=== PATIENT | female | born 1945 | race Caucasian/White ===

== ENCOUNTER 2023-10-06 09:25 | Outpatient (AMB) | payer MEDICARE, SELFPAY ==
--- NOTE | 2023-10-06 09:29 | MHC.PC.OV ---
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 Is last menstrual period known: No Post menopausal: No Patient : No Allergies No Known Allergies Allergy (Verified 10/06/23 09:33) Tobacco use date assessed: 10/06/23 Fall risk assessment: 2 + Falls in past year Last assessed Fall Risk: 10/06/23 Dental Screening Dental Screen Date: 10/06/23 Did you have a dental visit in the last 12 months?: Yes Did you have a dental problem in the last 6 months where you did not have access to dental care?: No Was dental information given to patient?: Patient has dentist HPI HPI Comments History of Present Illness Details This is a 78-year-old female with a past medical history of anxiety, hypertension, vitamin-D deficiency, hypothyroidism, obesity and lung nodules presenting for follow up. She transferred from my panel at [facility] primary care. She was a new patient to me there who transferred from Dr. Burden. Hypertension taking amlodipine 5 mg and lisinopril 10 mg daily. Her blood pressure is elevated today. No chest pain, shortness of breath, headache or dizziness. Anxiety and depression-prescribed fluoxetine 40 mg and Wellbutrin SR 150 mg twice daily. Symptoms are well-controlled on these medications. Hypothyroidism-taking levothyroxine 100 mcg once daily. TSH normal 01/2023. Vitamin-D deficiency-she completed a 12 week course of high dose vitamin-D and is on a daily supplement now. She received a bill for her last vitamin-D test. She is going to contact them to look into this. She had elevated LFTs. She had a liver ultrasound done at [facility] which showed mildly nodular contour. Patient reported having a liver biopsy with Dr. Alvarez in the past. 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 She has colonoscopies with Dr. Alvarez. Her liver ultrasound also showed cholelithiasis. She underwent cholecystectomy in July this year. No complications. Her last colonoscopy was 10/11/2021. No polyps. Prior colonoscopy did have a tubular adenoma. Repeat colonoscopy was recommended in 5 years. Osteoporosis-patient started Fosamax May 2023. She is on calcium and vitamin-D supplementation. She had a mammogram done in 2023 which was normal per patient. Multiple lung nodules-No prior chest CTs included in medical records that were transferred. Patient does not recall if she was supposed to have follow up imaging. No cough, hemoptysis or unexplained weight loss. She is a nonsmoker. Fall risk assessment positive today. Patient said she fell several weeks ago when she was working in her garden. She squatted down and lost her balance and fell forward. No serious injury. She says this has happened a couple of times within the past year. She reports having knee replacement surgery in the past. She feels like over time she has lost some of her strength. No dizziness or syncopal episodes. ROS: Constitutional: No unexplained weight loss, fever, chills, fatigue or night sweats. Eyes: No vision changes Respiratory: No shortness of breath, cough or sputum production. Cardiovascular: No chest pain Gastrointestinal: No anorexia, nausea, vomiting or diarrhea. No abdominal pain or blood in stool. Neurologic: No headache, dizziness, syncope Psychiatric:No SI/HI. Physical exam: Constitutional: Alert, in no distress. Neck: Supple, Full range of motion. No lymphadenopathy. Respiratory: Clear to auscultation. Cardiovascular: S1 S2 regular. No murmurs. Gastrointestinal: Abdomen soft, non-tender, non-distended. Normal bowel sounds. No palpable masses. Extremities: Warm and well perfused. No clubbing, cyanosis or edema. Psychiatric: Normal mood and affect [facility] Medical History (Updated 10/06/23 @ 11:13 by DOMINGO Benitez) Risk for falls Vitamin D deficiency Tubular adenoma of colon Spinal stenosis Major depression, chronic Osteoporosis Obesity with serious comorbidity Multiple lung nodules on CT Hypothyroidism Hypertension Hepatic steatosis Fatigue DJD (degenerative joint disease), multiple sites Chronic constipation Cholelithiases Anxiety Surgical History (Updated 10/06/23 @ 11:08 by DOMINGO Benitez) History of cholecystectomy History of knee replacement History of shoulder surgery Social History Housing: House Patient Tobacco Use Status: Never used Tobacco e-Cigarette/Vaping Use: Never Used Second Hand Smoke Exposure: Yes service: No Current occupational status: retired Current occupational exposures/hazards: No Cognitive needs: No Hearing needs: No Vision needs: Yes Questionnaire PHQ-9 Over the last 2 weeks, how often have you been bothered by any of the following problems? 1. Little interest or pleasure in doing things: not at all 2. Feeling down, depressed, or hopeless: not at all 3. Trouble falling or staying asleep, or sleeping too much: not at all 4. Feeling tired or having little energy: nearly every day 5. Poor appetite or overeating: nearly every day 6. Feeling bad about yourself - or that you are a failure or have let yourself or your family down: not at all 7. Trouble concentrating on things, such as reading the newspaper or watching television: not at all 8. Moving or speaking so slowly that other people could have noticed. Or the opposite - being so fidgety or restless that you have been moving around a lot more than usual: not at all 9. Thoughts that you would be better off or of hurting yourself in some way: not at all Total score: 6 Depression Screening Interpretation: Positive Depression Screening Follow-up: Existing condition and In treatment Depression Screening Done: Yes 24192 - PHQ-9 Billing: Yes Source: Developed by Drs. Jonnie Flores, Aide Paz, Saurabh Eagle and colleagues, with an educational juan ramon from [employer]. Thrive Questionnaire Date Thrive assessed: 10/06/23 I am a: Patient What is your living situation today?: I have a steady place to live Within the past 12 months, did the food you bought not last and you didn't have the money to get more?: Never true Within the past 12 months, did you worry whether your food would run out before you got money to buy more?: Never true Do you have trouble paying for medicines?: No Do you have trouble getting transportation to medical appointments?: No Do you have trouble paying your heating and electricity bill?: No Do you have trouble taking care of your child, family member or friend?: No Do you have trouble with day-to-day activities such as bathing, preparing meals, shopping, managing finances, etc.?: No Are you currently unemployed and looking for a job?: No Are you interested in more education?: No Please select the resources that you would like help with: None Currently or been in a relationship where the following occur: No concerns reported THRIVE Score: 0 AUDIT C Alcohol Use Questionnaire (AUDIT-C) 1. How often do you have a drink containing alcohol?: Never Total Score: 0 Score Reviewed/Action Taken: Yes CARMELA-7 AMB Questionnaire CARMELA-7 Date CARMELA - 7 assessed: 10/06/23 Feeling nervous, anxious, or on edge: 0 = Not at all Not being able to stop or control worryin = Not at all Worrying too much about different things: 0 = Not at all Trouble relaxin = Not at all Being so restless that it is hard to sit still: 0 = Not at all Becoming easily annoyed or irritable: 1 = Several days Feeling afraid as if something awful might happen: 0 = Not at all Total CARMELA-7 score (0-4 normal; 5-9 mild; 10-14 moderate; 15-21 severe): 1 Source: Developed by Drs. Jonnie Flores, Aide Paz, Saurabh Eagle and colleagues, with an educational juan ramon from [employer]. CARMELA-7 Assessment Billing CARMELA-7 Assessment Tool: CARMELA-7 Assessment 66912 Physical exam (Primary Care) Vital Signs: Last Vital Signs Temp 97.7 F 10/06/23 09:37 Pulse 60 10/06/23 09:37 Resp 16 10/06/23 09:37 BP 158/74 H 10/06/23 09:37 Pulse Ox 96 10/06/23 09:37 Oxygen Delivery Method Room Air 10/06/23 09:37 BMI result Body Mass Index 30.4 Tobacco/Smoking Status: Tobacco use Status Tobacco use date assessed 10/06/23 10/06/23 09:35 Patient Tobacco Use Status Never used Tobacco 10/06/23 09:35 e-Cigarette/Vaping Use Never Used 10/06/23 09:35 Depression Screening Interpretation: Positive Depression Screening Follow-up: Existing condition and In treatment Currently or been in a relationship where the following occur: No concerns reported Assessment and Plan Assessment & Plan (1) Hypertension: Code(s): I10 - Essential (primary) hypertension Qualifiers: Hypertension type: primary hypertension Qualified Code(s): I10 - Essential (primary) hypertension Plan: Increase lisinopril to 20 mg daily. Check labs in 1 month. Continue amlodipine 5 mg. Continue efforts at weight loss, avoidance of caffeine and low-sodium diet. (2) Hypothyroidism: Code(s): E03.9 - Hypothyroidism, unspecified Qualifiers: Hypothyroidism type: acquired Qualified Code(s): E03.9 - Hypothyroidism, unspecified Plan: Continue levothyroxine. (3) Multiple lung nodules on CT: Code(s): R91.8 - Other nonspecific abnormal finding of lung field Plan: See HPI. Requested last CT scan report from [facility]. (4) Major depression, chronic: Code(s): F32.9 - Major depressive disorder, single episode, unspecified Plan: Controlled. Continue fluoxetine and bupropion. (5) Osteoporosis: Code(s): M81.0 - Age-related osteoporosis without current pathological fracture Qualifiers: Osteoporosis type: age-related Presence of current pathological fracture: without current pathological fracture Qualified Code(s): M81.0 - Age-related osteoporosis without current pathological fracture Plan: Continue calcium and vitamin-D supplementation and Fosamax. Due for bone density exam in 05/03/2025. (6) Anxiety: Code(s): F41.9 - Anxiety disorder, unspecified Plan: Controlled. Continue fluoxetine. (7) Risk for falls: Code(s): Z91.81 - History of falling Plan: Mechanical falls with no serious injuries within the past year reported by the patient. Recommended physical therapy for gait coordination and strengthening. Reviewed assistive devices. She will think about this. Plan Follow up in 6 months for Medicare wellness visit. Medications: New alendronate 70 mg PO QWEEK 90 days 13 tabs 3RF Coding Level of Care Code Est Pt Level 4 (01316) Complex EM visit Add On G2211 Diagnoses Primary hypertension I10 Hypertension type: primary hypertension Acquired hypothyroidism E03.9 Hypothyroidism type: acquired Multiple lung nodules on CT R91.8 Major depression, chronic F32.9 Age-related osteoporosis without current pathological fracture M81.0 Osteoporosis type: age-related Presence of current pathological fracture: without current pathological fracture Anxiety F41.9 Risk for falls Z91.81 Additional Codes CARMELA-7 Assessment Billing - CARMELA-7 Assessment Tool: CARMELA-7 Assessment [id number] ([id number])
[2023-10-06 09:37] VITALS: BP 158/74; PULSE 60; RESP 16; TEMP 36.5; O2SAT 96; BMI 30.4
== END 2023-10-06 10:18 | disposition home or self-care (01) ==
PROVIDERS: PCP Physician Assistant Medical; Visit Provider Physician Assistant Medical
DX: I10 Essential (primary) hypertension (principal); E03.9 Hypothyroidism, unspecified; R91.8 Other nonspecific abnormal finding of lung field; F32.9 Major depressive disorder, single episode, unspecified; M81.0 Age-related osteoporosis without current pathological fracture; F41.9 Anxiety disorder, unspecified; Z91.81 History of falling
CPT/HCPCS: 99214; G2211

== ENCOUNTER 2024-03-26 08:40 | Outpatient (AMB) | payer MEDICARE, SELFPAY ==
--- NOTE | 2024-03-26 08:42 | AM.OFFVISMDC ---
Intake Vital Signs 03/26/24 08:43 Height 5 ft 1 in Weight 166 lb BMI 31.4 BP 138/76 Blood Pressure Location Rt brachial Position Sitting Pulse 68 Pulse Source Pulse Oximeter Pulse Oximetry (%) 95 Oxygen Delivery Method Room Air Intake Visit Reasons: annual wellness visit Allergies No Known Allergies Allergy (Verified 03/26/24 08:46) HPI HPI Comments History of Present Illness Details This is a 78-year-old female with a past medical history of anxiety, hypertension, vitamin-D deficiency, hypothyroidism, obesity and lung nodules presenting for wellness exam. Hypertension-taking amlodipine 5 mg and lisinopril 20 mg daily. Patient reports systolic home blood pressure readings are 130 or less. It is mildly elevated today. No chest pain, shortness of breath, headache or dizziness. Anxiety and depression-prescribed fluoxetine 40 mg and Wellbutrin SR 150 mg twice daily. She has had a lot more stress recently. She requests Xanax which she used to take as needed. She had no side effects on it. Her brother has dementia. It is getting to the point where he can not be alone, and he is asking to move in with the patient and her . 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 He also has depression and anxiety. [facility]. She is having difficulty with increased anxiety and irritability. Hypothyroidism-taking levothyroxine 100 mcg once daily. TSH normal 01/2023. She has lab orders to do at [facility] [place]. Vitamin-D deficiency-she completed a 12 week course of high dose vitamin-D and is on a daily supplement now. There was an issue with billing with her vitamin-D test at [facility] that took a long time to resolve so she does not want the vitamin-D level checked with her blood work though I have recommended it. She had elevated LFTs. She had a liver ultrasound done at [facility] which showed mildly nodular contour. Patient reported having a liver biopsy with Dr. Alvarez in the past. 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 She has colonoscopies with Dr. Alvarez. Her liver ultrasound also showed cholelithiasis. She underwent cholecystectomy in July 2023 this year. Her last colonoscopy was 10/11/2021. No polyps. Prior colonoscopy did have a tubular adenoma. Repeat colonoscopy was recommended in 5 years. Osteoporosis-patient started Fosamax May 2023. She is on calcium and vitamin-D supplementation. Multiple lung nodules-Per chest CT 03/22/2022 from [facility] bilateral pulmonary nodules not significantly changed. Per guidelines no further follow up needed. No cough, hemoptysis or unexplained weight loss. She is a nonsmoker. She goes to [facility] for chronic neck pain. She had 3 injections on each side 3 weeks ago. She has a follow up in April. She takes Tylenol which does not really help. She just got the notice to do her mammogram. She will call to schedule it. Fall risk assessment positive today because she fell last summer while working in her garden. She was not seriously injured. She reports having knee replacement surgery in the past. No dizziness or syncopal episodes. Patient said she is up-to-date with pneumonia vaccine, influenza vaccine and RSV vaccine done at her pharmacy. She will check with the pharmacy about tetanus immunization, and she is also going to schedule the shingles vaccine. She has albuterol as needed for wheezing and cough that occurs occasionally with cold symptoms. She needs a refill on the inhaler. Refill sent to pharmacy. ROS: Constitutional: No unexplained weight loss, fever, chills, fatigue or night sweats. Eyes: No vision changes, blurry vision, double vision, eye pain, eye redness, eye discharge. ENT: No hearing loss, sneezing, congestion, runny nose or sore throat. Respiratory: No shortness of breath, cough or sputum production. Cardiovascular: No chest pain, chest pressure or chest discomfort. No palpitations or pedal edema. Gastrointestinal: No anorexia, nausea, vomiting or diarrhea. No abdominal pain or blood in stool. Genitourinary: No dysuria, hematuria, urinary frequency. Neurologic: No headache, dizziness, syncope, unilateral weakness, ataxia, numbness or tingling in the extremities. Musculoskeletal: see HPI Hematologic/Lymphatics: No bleeding or bruising. No painful lymph nodes. Skin: No rash or itching. No new or changing skin lesions. Endocrine: No cold or heat intolerance. No polyuria or polydipsia. Psychiatric: No SI or HI. Physical exam: Constitutional: Alert, in no distress. Head: Normocephalic. Eyes: Pupils are equal, round and reactive to light. Extraocular muscles intact. Ear, Nose and Throat: Canals clear. TMs normal. Normal nasal mucosa. No nasal discharge. No oral lesions. Neck: Supple, Full range of motion. No lymphadenopathy. No palpable thyroid masses. Respiratory: Clear to auscultation. Cardiovascular: S1 S2 regular. No murmurs. No carotid bruits. Gastrointestinal: Abdomen soft, non-tender, non-distended. Normal bowel sounds. No palpable masses. Neurologic: No focal neurological deficits. Symmetric patellar reflexes. Moves all extremities spontaneously. Sensation intact bilaterally. Skin: No rashes or lesions. Musculoskeletal: No gross deformities. Normal range of motion. Extremities: Warm and well perfused. No clubbing, cyanosis or edema. Intact peripheral pulses. Psychiatric: Normal mood and affect [facility] Medical History Risk for falls Vitamin D deficiency Tubular adenoma of colon Spinal stenosis Major depression, chronic Osteoporosis Obesity with serious comorbidity Multiple lung nodules on CT Hypothyroidism Hypertension Hepatic steatosis Fatigue DJD (degenerative joint disease), multiple sites Chronic constipation Cholelithiases Anxiety Surgical History History of cholecystectomy History of knee replacement History of shoulder surgery Social History Housing: House Patient Tobacco Use Status: Never used Tobacco e-Cigarette/Vaping Use: Never Used Second Hand Smoke Exposure: Yes service: No Current occupational status: retired Current occupational exposures/hazards: No Cognitive needs: No Hearing needs: No Vision needs: Yes Questionnaire Medicare Wellness Checkup What [age] What gender do you identify with?: female During the past 4 weeks, how much have you been bothered by emotional problems such as feeling anxious, depressed, irritable, sad or downhearted, and blue?: see PHQ-9 During the past 4 weeks, has your physical & emotional health limited your social activities with family, friends, neighbors, or groups?: quite a bit During the past 4 weeks, how much bodily pain have you generally had?: very mild pain During the past 4 weeks, was someone available to help you if you needed & wanted help?: yes, as much as I wanted During the past 4 weeks, what was the hardest physical activity you could do for at least 2 minutes?: moderate Can you get to places out of walking distance without help? (For eg., can you travel alone on buses, taxis or drive your car?): Yes Can you go shopping for groceries or clothes without someone's help?: Yes Can you prepare your own meals?: Yes Can you do your housework without help?: Yes Because of any health problems, do you need the help of another person with your personal care needs such as eating, bathing, dressing or getting around the house?: No Can you handle your own money without help?: Yes During the past 4 weeks, how would you rate your health in general?: good During the past 4 weeks how have things been going for you?: good & bad parts about equal Are you having difficulties driving your car?: no Do you always fasten your seat belt when you are in a car?: yes, usually During past 4 weeks, have you been bothered by the following: never: Sexual problems?, Trouble eating well? and Problems using the telephone?, sometimes: Falling or dizzy when standing up and Teeth or denture problems? and always: Tiredness or fatigue? Have you fallen 2 or more times in the past year?: Yes Are you afraid of falling?: No Are you a smoker?: no During the past 4 weeks, how many drinks of wine, beer, or other alcoholic beverages did you have?: no alcohol at all Do you exercise for about 20 minutes 3 or more times a week?: no, I usually do not exercise this much Have you been given information to help with the following?: no: Hazards in your house that might hurt you? and no: Keeping track of your medications? How often do you have trouble taking medicines the way you have been told to take them?: I always take medicine as prescribed How confident are you that you can control & manage most of your health problems?: very confident What is your race?: White Activity of Daily Living Bathing - sponge bath, tub bath or shower: receives no assistance (gets in/out by self, if usual bathing means Dressing - getting clothes from closets & drawers, including inner/outer garments & fasteners.: gets clothes & gets completely dressed without help Toileting - going to the 'toilet room' for urine/bowel elimination & cleaning self/arranging clothes: goes to toilet room, cleans self, arranges clothes without help Transfer: moves in & out of bed and chair without help (may use support object) Continence: controls urination/bowel movements completely by self Feeding: feeds self without help Total Score: 0 Information obtained from: patient Using telephone: independent Traveling: independent Shopping: independent Preparing meals: independent Housework: independent Taking medicine: independent Managing money: independent PHQ-9 Over the last 2 weeks, how often have you been bothered by any of the following problems? 1. Little interest or pleasure in doing things: not at all 2. Feeling down, depressed, or hopeless: several days 3. Trouble falling or staying asleep, or sleeping too much: not at all 4. Feeling tired or having little energy: nearly every day 5. Poor appetite or overeating: not at all 6. Feeling bad about yourself - or that you are a failure or have let yourself or your family down: not at all 7. Trouble concentrating on things, such as reading the newspaper or watching television: several days 8. Moving or speaking so slowly that other people could have noticed. Or the opposite - being so fidgety or restless that you have been moving around a lot more than usual: not at all 9. Thoughts that you would be better off or of hurting yourself in some way: not at all Total score: 5 Depression Screening Interpretation: Positive Depression Screening Done: Yes 34881 - PHQ-9 Billing: Yes Source: Developed by Drs. Jonnie Flores, Aide Paz, Saurabh Eagle and colleagues, with an educational juan ramon from [employer]. Physical Exam Vital Signs: Last Vital Signs Pulse 68 03/26/24 08:43 BP 138/76 03/26/24 08:43 Pulse Ox 95 03/26/24 08:43 Oxygen Delivery Method Room Air 03/26/24 08:43 BMI result Body Mass Index 31.4 Assessment & Plan Assessment & Plan (1) Encounter for annual wellness visit (AWV) in Medicare patient: Code(s): Z00.00 - Encounter for general adult medical examination without abnormal findings (2) Major depression, chronic: Code(s): F32.9 - Major depressive disorder, single episode, unspecified Plan: Continue fluoxetine and bupropion. (3) Multiple lung nodules on CT: Comment: Per chest CT 03/22/2022 from [facility] bilateral pulmonary nodules not significantly changed. Per guidelines no further follow up needed. Code(s): R91.8 - Other nonspecific abnormal finding of lung field (4) Hypothyroidism: Code(s): E03.9 - Hypothyroidism, unspecified Qualifiers: Hypothyroidism type: acquired Qualified Code(s): E03.9 - Hypothyroidism, unspecified Plan: Continue levothyroxine. Check TSH. (5) Hypertension: Code(s): I10 - Essential (primary) hypertension Qualifiers: Hypertension type: primary hypertension Qualified Code(s): I10 - Essential (primary) hypertension Plan: Systolic BP mildly elevated in office. Patient reports home readings are normal. She will continue to monitor and call if blood pressure readings are greater than 130. Continue amlodipine and lisinopril. Recommended low-sodium diet and avoidance of caffeine. (6) Hepatic steatosis: Code(s): K76.0 - Fatty (change of) liver, not elsewhere classified Plan: Recommended low-cholesterol diet and avoidance of alcohol. Followed by Gastroenterology. Check LFTs. (7) Anxiety: Code(s): F41.9 - Anxiety disorder, unspecified Plan: Increase stressed recently due to the situation with her brother. Continue fluoxetine and bupropion. Prescribed short term prescription of Xanax to use as needed for anxiety at night. Reviewed this is a controlled substance that is addictive. Advised patient not to drive, operate heavy machinery or combined with alcohol due to the risk of sedation, dizziness and respiratory suppression. The risks of withdrawal were reviewed with the patient including seizure and . If patient needs referral to behavioral health she will contact me. She is well supported at home by her . (8) Vitamin D deficiency: Code(s): E55.9 - Vitamin D deficiency, unspecified Plan: Continue vitamin-D supplementation. Declines vitamin-D level. (9) Osteoporosis: Code(s): M81.0 - Age-related osteoporosis without current pathological fracture Qualifiers: Osteoporosis type: age-related Presence of current pathological fracture: without current pathological fracture Qualified Code(s): M81.0 - Age-related osteoporosis without current pathological fracture Plan: Bone density up-to-date. Continue weight-bearing exercise and avoidance of alcohol and tobacco. Continue Fosamax. Continue calcium and vitamin-D supplementation. Plan Follow up in 6 months. Medications: New albuterol sulfate 90 mcg/actuation 2 inhalations inhalation .every 4 hours 30 days PRN 8.5 grams 1RF shortness of breath or wheezing alprazolam (Xanax) 0.25 - 0.5 mg (1 - 2 x 0.25 mg) PO BEDTIME PRN 14 tabs 0RF anxiety Refilled levothyroxine 100 mcg PO DAILY 90 tabs 3RF Quality Reporting (2019) Depression/Bipolar (159/160/161/177) PHQ-9: Total score: 5 Coding Level of Care Code Medicare Subsequent (G0439) Est Pt Level 2 (06360) Diagnoses Encounter for annual wellness visit (AWV) in Medicare patient Z00.00 Major depression, chronic F32.[address] on [address] R91.8 Acquired hypothyroidism E03.9 Hypothyroidism type: acquired Primary hypertension I10 Hypertension type: primary hypertension Hepatic steatosis K76.0 Anxiety F41.9 Vitamin D deficiency E55.9 Age-related osteoporosis without current pathological fracture M81.0 Osteoporosis type: age-related Presence of current pathological fracture: without current pathological fracture Additional Codes PHQ-9 - 77485 - PHQ-9 Billing: Yes ([id number])
[2024-03-26 08:43] VITALS: BP 138/76; PULSE 68; O2SAT 95; BMI 31.4
--- OUTSIDE RECORDS SUMMARY | 2024-03-26 08:59 | XMS_ITS | Encounter Summary ---
Author Organization [facility] Address [address] [place] [address] Care Team Providers Care Chancery Clerk Name Role Phone Kinga Brandt MD Primary Care Provider + Encounter Details Date Type Department Care Team (Latest Contact Info) Description 05/29/2020 Lab Requisition [facility] COVID [address] Through [address] [place] [address] [address] [place] [address] Frankie Mobley MD [address] [place] [address] Encounter for laboratory testing for COVID-19 virus Social History Tobacco Use Types Packs/Day Years Used Date Smoking Tobacco: Former Cigarettes 974 - 1998 Smokeless Tobacco: Never Alcohol Use Standard Drinks/Week Comments Yes 0 (1 standard drink = 0.6 oz pur e alcohol) 6x year Sex and Gender Information Value Date Recorded Sex Assigned at Not on file Gender Identity Not on file Sexual Orientation Not on file COVID-19 Exposure Response Date Recorded In the last month, have you been in contact with someone who was confirmed or suspected to have Coronavirus / COVID-19? Unable to assess 05/29/2020 10:42 AM EDT documented as of this encounter Plan of Treatment Not on file documented as of this encounter Procedures Procedure Name Priority Date/Time Associated Diagnosis Comments COVID-19 (SARS-COV-2), PHILLIP (IN-HOUSE) Routine 05/29/2020 10:42 AM EDT Encounter for laboratory testing for COVID-19 virus [ICD-10-CM] documented in this encounter Results * COVID-19 (SARS-CoV-2), PHILLIP (In-House) (05/29/2020 10:42 AM EDT) SARS CoV 2 Not Detected Not Detected 05/29/2020 1:48 PM EDT [facility] Comment: Negative results do not preclude SARS-CoV-2 (COVID-19)infection and should not be used as the sole basis for treatment or other patient management decisions. The SARS-CoV-2 (Covid-19) Nucleic Acid Amplification Assay is limited to laboratories certified under the Clinical Laboratory Improvement Amendments of 1988 (CLIA), 42 U.S.C. 263a, to perform high complexity tests. Nucleic acid amplication tests include RT-PCR and TMA. This assay has not been FDA cleared or approved, however, this assay has been authorized by the Food and Drug Administration (FDA) under an Emergency Use Authorization (EUA). ??Validation was completed and performance characteristics established by [facility] as per the FDA and CLIA requirement for this EUA. The Aptima SARS-CoV-2 assay Letter of Authorization, along with the authorized Fact Sheet for Healthcare Providers, the authorized Fact Sheet for Patients, and authorized labeling are available on the FDA website: https://www.fda.gov/medical-devices/qzxicmzxv-pwgwwstngj-vvsicho-devices/emergen -us v-ytyevnpgpiujbc-lyszxwf-devices. [facility] [place] [place] License [id number] ??CLIA [id number] Source Nasopharyngeal 05/29/2020 1:48 PM EDT [facility] Comment:Performed at [facility], [place] license No. [id number] CLIA No. [id number] Microbiology Nasopharyngeal swab / Unknown 05/29/2020 10:42 AM EDT 05/29/2020 10:43 AM EDT Frankie oMbley MD BODY FLUIDS AND NASEEM BULLARD ORDERABLES [facility] [address] [place] [address] documented in this encounter Visit Diagnoses Diagnosis Encounter for laboratory testing for COVID-19 virus documented in this encounter Care Teams Chancery Clerk Relationship Specialty Start Date End Date Kinga Brandt MD [address] [place] [address] PCP - General 04/22/20 documented as of this encounter
--- OUTSIDE RECORDS SUMMARY | 2024-03-26 08:59 | XMS_ITS | Clinical Summary ---
Author Organization [facility] Address [address] [place] [address] Care Team Providers Care Tool Grinder Name Role Phone Abiodun Christianson Primary Care Provider Unavailabl e Family History Medical History Relation Name Comments Cancer (?Type) Mother malignant elizabeth plasm : Mother Heart Disorder Mother FH: heart dis ease : Mother Relation Name Status Comments Mother Social History Tobacco Use Types Packs/Day Years Used Date Smoking Tobacco: Never Assessed Comments Unknown Sex and Gender Information Value Date Recorded Sex Assigned at Not on file Legal Sex Female 9:43 PM EDT Gender Identity Not on file Sexual Orientation Not on file Plan of Treatment Health Maintenance Due Date Last Done Comments Hepatitis C Screening 1945 DTaP/Tdap/Td (1 - Tdap) 06/12/1965 Pneumococcal 50+ years (1 of 1 - PCV) 06/12/1997 Zoster (Shingrix) (1 of 2) 06/12/1997 Bone Density 06/12/2012 RSV (1 - 1-dose 75+ series) 06/12/2022 COVID-19 Vaccine ( - 2023-2 5 season) 2023 Influenza (#1) 2023 HPV Vaccine Aged Out No longer eligi ble based on patient's age to complete this topic Hep A Aged Out No longer eligi ble based on patient's age to complete this topic Hep B Aged Out No longer eligi ble based on patient's age to complete this topic Hib Aged Out No longer eligi ble based on patient's age to complete this topic Mammogram/Breast Imaging Discontinued Meningococcal ACWY Aged Out No longer eligible based on patient's age to complete this topic Pap Smear Discontinued Zoster (Zostavax) Discontinued Care Teams Tool Grinder Relationship Specialty Start Date End Date Abiodun Christianson PCP - General 09/20/22
--- OUTSIDE RECORDS SUMMARY | 2024-03-26 08:59 | XMS_ITS | Clinical Summary ---
Author Organization [facility] Address [address] [place] [id number] Care Team Providers Care Plant Engineering Supervisor Name Role Phone Kinga Brandt MD Primary Care Provider + Allergies Active Allergy Reactions Criticality Noted Date Comments Sulfamethoxazole-Trimethop rim Unknown/Patient and Family Unable to Define Medium 06/05/2020 Oxycodone-Acetaminophen GI Intolerance/Nausea/Vomiting Low 06/05/2020 Hydrocodone-Acetaminophen GI Intolerance/Nausea/Vomiting Low 06/05/2020 Medications Medication Sig Dispensed Refills Start Date End Date Status levothyroxine (Synthroid) 112 MCG tablet Take 112 mcg by mouth daily on an empty stomach. Active buPROPion (WELLBUTRIN SR) 150 MG 12 hr tablet Take 150 mg by mouth 2 (two) times a day in the morning and the early evening.. Active FLUoxetine (PROzac) 40 MG capsule Take 40 mg by mouth daily. Active carisoprodol (SOMA) 350 MG tablet Take 350 mg by mouth 2 (two) times a day as needed for muscle spasms. Active traMADol (ULTRAM) 50 MG tabletIndications:Pa in, dental Take 1 tablet (50 mg total) by mouth 3 times daily (every 8 hours) as needed for moderate pain or severe pain. 9 tablet 06/05/2020 Active amoxicillin (AMOXIL) 500 MG capsuleIndications:P ain, dental Take 1 capsule (500 mg total) by mouth 3 (three) times a day. 15 capsule 06/05/2020 Active ibuprofen (MOTRIN) 600 MG tabletIndications:Pa in, dental Take 1 tablet (600 mg total) by mouth 4 times daily (every 6 hours) as needed for mild pain. 30 tablet 06/05/2020 Active Social History Tobacco Use Types Packs/Day Years Used Date Smoking Tobacco: Former Cigarettes 1 25 1 974 - 1998 Smokeless Tobacco: Never Alcohol Use Standard Drinks/Week Comments Yes 0 (1 standard drink = 0.6 oz pur e alcohol) 6x year Sex and Gender Information Value Date Recorded Sex Assigned at Not on file Gender Identity Not on file Sexual Orientation Not on file Last Filed Vital Signs Vital Sign Reading Time Taken Comments Blood Pressure 150/67 06/05/2020 10:30 AM EDT Pulse 56 06/05/2020 10:30 AM EDT Temperature 36.5 ??C (97.7 ??F) 06/05/2020 9:34 AM ED T Respiratory Rate 16 06/05/2020 10:15 AM EDT Oxygen Saturation 94% 06/05/2020 10:30 AM EDT Inhaled Oxygen Concentration - - Weight 72.6 kg (160 lb) 05/15/2020 10:13 AM EDT Height 154.9 cm (5' 1 ) 05/15/2020 10:13 AM EDT Body Mass Index 30.23 05/15/2020 10:13 AM EDT Plan of Treatment Health Maintenance Due Date Last Done Comments Hepatitis C Virus Screening 1945 DTaP/Tdap/Td Vaccines (1 - Tdap) 06/12/1966 Pneumococcal Vaccines 50+ (1 of 1 - PCV) 06/12/1997 Zoster (Shingles) Vaccine (1 of 2) 06/12/1997 DXA Bone Density (Females,Ag es 65 and older) 06/12/2012 RSV Vaccine 60 years and old er and Patients (1 - 1-dose 75+ series) 06/12/2022 Influenza Vaccine 09/15/2023 COVID-19 Vaccine ( - 2023-2 5 season) 2023 Hepatitis B Vaccines Aged Out No long er eligible based on patient's age to complete this topic Advance Directives * Full Code (Latest Code Status on File) Date Activated Date Inactivated Comments 06/05/2020 7:22 AM Question Answer Comments Decision Thoroughly Discussed with: Patient Care Teams Plant Engineering Supervisor Relationship Specialty Start Date End Date Kinga Brandt MD [address] [place] [address] PCP - General 04/22/20
== END 2024-03-26 09:24 | disposition home or self-care (01) ==
PROVIDERS: PCP Physician Assistant Medical; Visit Provider Physician Assistant Medical
DX: Z00.00 Encounter for general adult medical examination without abnormal findings (principal); F32.9 Major depressive disorder, single episode, unspecified; R91.8 Other nonspecific abnormal finding of lung field; E03.9 Hypothyroidism, unspecified; I10 Essential (primary) hypertension; K76.0 Fatty (change of) liver, not elsewhere classified; F41.9 Anxiety disorder, unspecified; E55.9 Vitamin D deficiency, unspecified; M81.0 Age-related osteoporosis without current pathological fracture

== ENCOUNTER → 2024-03-26 08:40 | Outpatient (BNVA) | payer MEDICARE, SELFPAY | PROVIDERS: PCP Physician Assistant Medical; Visit Provider Physician Assistant Medical | DX: Z00.00 Encounter for general adult medical examination without abnormal findings (principal); F32.9 Major depressive disorder, single episode, unspecified; R91.8 Other nonspecific abnormal finding of lung field; E03.9 Hypothyroidism, unspecified; I10 Essential (primary) hypertension; K76.0 Fatty (change of) liver, not elsewhere classified; F41.9 Anxiety disorder, unspecified; E55.9 Vitamin D deficiency, unspecified; M81.0 Age-related osteoporosis without current pathological fracture; Z79.899 Other long term (current) drug therapy | CPT/HCPCS: 96127; 99212 ==

== ENCOUNTER 2024-03-28 08:35 | Outpatient (REF) | payer MEDICARE, SELFPAY ==
[2024-03-28 11:34] LABS: Hematocrit 42.9 % (37.0-47.0); Mean Corpuscular HGB Conc 32.6 g/dl (31.0-35.0); Mean Corpuscular Hemoglobin 30.8 pg (27.0-33.0); Mean Corpuscular Volume 94.3 fL (80.0-98.0); Mean Platelet Volume 10.1 fL (9.4-12.3); Platelet Count 163 X10*3/uL (160-400); Red Blood Count 4.55 X10*6/uL (4.20-5.50); Red Cell Distribution Width 13.2 % (11.0-16.0); White Blood Count 6.2 X10*3/uL (4.8-10.8)
[2024-03-28 11:59] LABS: Alanine Aminotransferase 52 U/L (0-31); Albumin Level 4.1 g/dL (3.5-5.0); Alkaline Phosphatase 54 U/L (39-117); Anion Gap 12 (12-20); Aspartate Amino Transferase 46 U/L (5-31); Bilirubin Total 0.8 mg/dL (0.0-1.0); Blood Urea Nitrogen 23 mg/dL (9-16); Calcium 9.2 mg/dL (8.4-10.2); Carbon Dioxide 24 mmol/L (22-29); Chloride 107 mmol/L (96-108); Cholesterol 181 mg/dL (<200); Estimated Glomerular Filt Rate 45; Glucose Random 138 mg/dL (60-115); HDL Cholesterol 45 mg/dL (>40); LDL Cholesterol Calculated 118 mg/dL (<100); Potassium 4.5 mmol/L (3.3-5.1); Sodium 138 mmol/L (135-145); Total Protein 7.6 g/dL (6.5-8.0); Triglycerides 91 mg/dL (<150)
[2024-03-28 12:21] LABS: TSH reflex Free T4 1.87 uIU/mL (0.32-4.0)
== END 2024-03-28 08:36 | disposition home or self-care (01) ==
LOC: HO.WFDLDS 08:35
PROVIDERS: Visit Provider Physician Assistant Medical
DX: K76.0 Fatty (change of) liver, not elsewhere classified (principal); I10 Essential (primary) hypertension; E03.9 Hypothyroidism, unspecified; M81.0 Age-related osteoporosis without current pathological fracture; E55.9 Vitamin D deficiency, unspecified; Z91.81 History of falling; E66.9 Obesity, unspecified
CPT/HCPCS: 36415; 80053; 80061; 84443; 85027

== ENCOUNTER 2024-04-26 14:20 | Outpatient (AMB) | payer MEDICARE, SELFPAY ==
--- NOTE | 2024-04-26 14:17 | MHC.PC.OV ---
Intake Visit Reasons: review test results. Building Pressure Washer Required: No Allergies No Known Allergies Allergy (Verified 04/26/24 14:17) Tobacco use date assessed: 10/06/23 Dental Screening Dental Screen Date: 10/06/23 HPI HPI Comments History of Present Illness Details This is a 78-year-old female with a past medical history of anxiety, hypertension, vitamin-D deficiency, hypothyroidism, obesity and lung nodules presenting to discuss her lab results. Her fasting glucose is elevated at 138. Denies history of prediabetes/diabetes. She endorses urinary frequency. No polydipsia. Her GFR is decreased at 47. Creatinine is 1.17. Denies history of kidney issues. She is not using NSAIDs. She drinks a lot of water during the day. Her LDL cholesterol is elevated at 118. She is not on a cholesterol medication. Nonsmoker. She had elevated LFTs. She had a liver ultrasound done at [facility] which showed mildly nodular contour. Patient reported having a liver biopsy with Dr. Alvarez in the past. She was diagnosed with RON. She has colonoscopies with Dr. Alvarez. Her liver ultrasound also showed cholelithiasis. She underwent cholecystectomy in July 2023. Denies abdominal pain, nausea, vomiting, jaundice. ROS: Constitutional: No unexplained weight loss, fever, chills, fatigue or night sweats. Gastrointestinal: No anorexia, nausea, vomiting or diarrhea. No abdominal pain Genitourinary: No dysuria, hematuria, urinary PFSH Medical History (Updated 04/26/24 @ 14:29 by DOMINGO Benitez) Decreased renal function Hyperlipidemia Elevated fasting blood sugar Risk for falls Vitamin D deficiency Tubular adenoma of colon Spinal stenosis Major depression, chronic Osteoporosis Obesity with serious comorbidity Multiple lung nodules on CT Hypothyroidism Hypertension Hepatic steatosis Fatigue DJD (degenerative joint disease), multiple sites Chronic constipation Cholelithiases Anxiety Surgical History History of cholecystectomy History of knee replacement History of shoulder surgery Social History Housing: House Patient Tobacco Use Status: Never used Tobacco e-Cigarette/Vaping Use: Never Used Second Hand Smoke Exposure: Yes service: No Current occupational status: retired Current occupational exposures/hazards: No Cognitive needs: No Hearing needs: No Vision needs: Yes Questionnaire Thrive Questionnaire Date Thrive assessed: 10/06/23 CARMELA-7 AMB Questionnaire CARMELA-7 Date CARMELA - 7 assessed: 10/06/23 Source: Developed by Drs. Jonnie Flores, Aide Paz, Saurabh Eagle and colleagues, with an educational juan ramon from [employer]. Physical exam (Primary Care) Tobacco/Smoking Status: Tobacco use Status Tobacco use date assessed 10/06/23 04/26/24 14:18 Patient Tobacco Use Status Never used Tobacco 04/26/24 14:18 e-Cigarette/Vaping Use Never Used 04/26/24 14:18 Thrive Assessment: Date of Thrive Assessment Date Thrive assessed 10/06/23 04/26/24 14:18 Telehealth Telehealth Telehealth Platform: Telephone Location of provider rendering services: practice address Location of patient: address on file Patient Identification confirmed using: Name, : Yes Telehealth method: voice only Patient verbally consented to treatment: Yes Patient verbally consented to billing insurance company: Yes Patient informed of any privacy concerns related to visit: Yes Minutes spent on Phone/Video with Pt.: 8 Coding Level of Care Code Tele Est Pt Level 3 (60918) Complex EM visit Add On G2211 Diagnoses Decreased renal function N28.9 Hyperlipidemia E78.5 Elevated fasting blood sugar R73.01 Hepatic steatosis K76.0 Assessment & Plan Assessment & Plan (1) Decreased renal function: Code(s): N28.9 - Disorder of kidney and ureter, unspecified Category: Medical Plan: Check urine for microalbumin and repeat creatinine and GFR. (2) Hyperlipidemia: Code(s): E78.5 - Hyperlipidemia, unspecified Category: Medical Plan: ASCVD risk score is elevated. We will check hemoglobin A1c and we discussed that she may need to start a statin. We will talk about this once I have the rest of her lab results. (3) Elevated fasting blood sugar: Code(s): R73.01 - Impaired fasting glucose Category: Medical Plan: Check hemoglobin A1c. (4) Hepatic steatosis: Code(s): K76.0 - Fatty (change of) liver, not elsewhere classified Category: Medical Plan: Followed by Gastroenterology. Avoid alcohol. Follow diet low in cholesterol. Plan Follow up to be determined once labs are resulted. Orders: Orders Creatinine Today E78.5 - Hyperlipidemia, unspecified, N28.9 - Disorder of kidney and ureter, unspecified, R73.01 - Impaired fasting glucose Hemoglobin A1c Today E78.5 - Hyperlipidemia, unspecified, N28.9 - Disorder of kidney and ureter, unspecified, R73.01 - Impaired fasting glucose Microalbumin, Random (w Creat) Today E78.5 - Hyperlipidemia, unspecified, N28.9 - Disorder of kidney and ureter, unspecified, R73.01 - Impaired fasting glucose
--- OUTSIDE RECORDS SUMMARY | 2024-04-26 18:11 | XMS_ITS | Clinical Summary ---
Author Organization [facility] Address [address] [place] [address] Care Team Providers Care Form Setter Helper Name Role Phone Abiodun Christianson Primary Care [...] Smear Discontinued Zoster (Zostavax) Discontinued Care Teams Form Setter Helper Relationship Specialty Start Date End Date Abiodun Christianson PCP - General 09/20/22
--- OUTSIDE RECORDS SUMMARY | 2024-04-26 18:11 | XMS_ITS | Clinical Summary ---
Author Organization [facility] Address [address] [place] [id number] Care Team Providers Care Forex Trader Name Role Phone Kinga Brandt MD Primary [...] Decision Thoroughly Discussed with: Patient Care Teams Forex Trader Relationship Specialty Start Date End Date Kinga Brandt MD [address] [place] [address] PCP - General 04/22/20
--- OUTSIDE RECORDS SUMMARY | 2024-04-26 18:11 | XMS_ITS | Encounter Summary ---
Author Organization [facility] Address [address] [place] [address] Care Team Providers Care Director Franchise Sales Name Role Phone Kinga Brandt MD Primary Care Provider + Encounter Details Date Type Department Care Team (Latest Contact Info) Description 05/29/2020 Lab Requisition [facility] [address] [place] [address] [address] [place] [address] Frankie Mobley MD [address] [place] [address] Encounter for laboratory testing for COVID-19 virus [...] Name Priority Date/Time Associated Diagnosis Comments COVID-19 (SARS-COV-2) PHILLIP Routine 05/29/2020 10:42 AM EDT Encounter for laboratory testing for COVID-19 virus [ICD-10-CM] documented in this encounter Results * COVID-19 (SARS-CoV-2), PHILLIP (In-House) (05/29/2020 10:42 AM EDT) SARS CoV 2 Not Detected Not Detected 05/29/2020 1:48 PM EDT [facility] Comment: Negative results do not [...] was completed and performance characteristics established by [facility] as per the FDA and CLIA requirement for this EUA. The Aptima SARS-CoV-2 assay Letter of Authorization, along with the authorized Fact Sheet for Healthcare Providers, the authorized Fact Sheet for Patients, and authorized labeling are available on the FDA website: https://www.fda.gov/medical-devices/kruyekjut-dcuyvxghmu-hchwnmf-devices/emergen - a-skjwcspgmsgrjr-ggtlcrh-devices. Performed at [facility], [place], [place] License 0385 ??CLIA [id number] Source Nasopharyngeal 05/29/2020 1:48 PM EDT [facility] [employer] Comment:Performed at [facility], [place] license No. [id number] CLIA No. [id number] Microbiology Nasopharyngeal swab / Unknown 05/29/2020 10:42 AM EDT 05/29/2020 10:43 AM EDT Frankie Mobley MD MICROBIOLOGY - GENER AL ORDERABLES [facility] [address] [place] [address] documented in this encounter Visit Diagnoses Diagnosis Encounter for laboratory testing for COVID-19 virus documented in this encounter Care Teams Director Franchise Sales Relationship Specialty Start Date End Date Kinga Brandt MD [address] [place] [address] PCP - General 04/22/20 documented as of this encounter
== END 2024-04-26 14:33 | disposition home or self-care (01) ==
LOC: HO.HMCFM 14:20
PROVIDERS: PCP Physician Assistant Medical; Visit Provider Physician Assistant Medical
DX: N28.9 Disorder of kidney and ureter, unspecified (principal); E78.5 Hyperlipidemia, unspecified; R73.01 Impaired fasting glucose; K76.0 Fatty (change of) liver, not elsewhere classified

== ENCOUNTER 2024-04-27 09:40 | Outpatient (REF) | payer MEDICARE, SELFPAY ==
--- OUTSIDE RECORDS SUMMARY | 2024-04-27 10:38 | XMS_ITS | Clinical Summary ---
Author Organization [facility] Address [address] [place] [address] Care Team Providers Care Personalized Living Manager Nurse Name Role Phone Abiodun Christianson Primary Care [...] Smear Discontinued Zoster (Zostavax) Discontinued Care Teams Personalized Living Manager Nurse Relationship Specialty Start Date End Date Abiodun Christianson PCP - General 09/20/22
--- OUTSIDE RECORDS SUMMARY | 2024-04-27 10:38 | XMS_ITS | Clinical Summary ---
Author Organization [facility] Address [address] [place] [address] Care Team Providers Care Assistant Loan Processor Name Role Phone Kinga Brandt MD Primary [...] Decision Thoroughly Discussed with: Patient Care Teams Assistant Loan Processor Relationship Specialty Start Date End Date Kinga Brandt MD [address] [place] [address] PCP - General 04/22/20
--- OUTSIDE RECORDS SUMMARY | 2024-04-27 10:38 | XMS_ITS | Encounter Summary ---
Author Organization [facility] Address [address] [place] [address] Care Team Providers Care Skein Inspector Name Role Phone Kinga Brandt MD Primary Care Provider + Encounter Details Date Type Department Care Team (Latest Contact Info) Description 05/29/2020 Lab Requisition [facility] [address] [place] [address] [address] [place] [address] Frankie Mobley MD [address] [place] [address] Encounter for laboratory testing for COVID-19 virus [...] Detected Not Detected 05/29/2020 1:48 PM EDT [facility] Comment: Negative results do not [...] labeling are available on the FDA website: https://www.fda.gov/medical-devices/apeufiwfq-eibrhjnmyz-ogaedbh-devices/emergen - q-egbqdpdxbsavzu-hgjmykt-devices. Performed at [facility], [place], [place] License 0385 ??CLIA [id number] Source Nasopharyngeal 05/29/2020 1:48 PM EDT [facility] [employer] Comment:Performed at [facility], [place] license No. [id number] CLIA No. [id number] Microbiology Nasopharyngeal swab / Unknown 05/29/2020 10:42 AM EDT 05/29/2020 10:43 AM EDT Frankie Mobley MD MICROBIOLOGY - GENER AL ORDERABLES [facility] [address] [place] [address] documented in this encounter Visit Diagnoses Diagnosis Encounter for laboratory testing for COVID-19 virus documented in this encounter Care Teams Skein Inspector Relationship Specialty Start Date End Date Kinga Brandt MD [address] [place] [address] PCP - General 04/22/20 documented as of this encounter
[2024-04-27 11:45] LABS: Estimated Average Glucose 120 mg/dL; Hemoglobin A1c % 5.8 % (<6.0)
[2024-04-27 12:37] LABS: Estimated Glomerular Filt Rate 54
[2024-04-27 15:37] LABS: Creatinine Urine 96.58 mg/dL; Microalbum/Creatinine Ratio Ur 25.8 ug/mg cr (<30)
== END 2024-04-27 09:41 | disposition home or self-care (01) ==
LOC: HO.WFDLDS 09:40
PROVIDERS: Visit Provider Physician Assistant Medical
DX: R73.01 Impaired fasting glucose (principal); E78.5 Hyperlipidemia, unspecified; N28.9 Disorder of kidney and ureter, unspecified
CPT/HCPCS: 36415; 82043; 82565; 82570; 83036

== ENCOUNTER 2024-07-12 11:09 | Outpatient (AMB) | payer MEDICARE, SELFPAY ==
--- NOTE | 2024-07-12 11:24 | MHC.PC.OV ---
Vital Signs 07/12/24 11:29 Height 5 ft 1 in Weight 163 lb 6 oz BMI 30.9 BP 120/68 Blood Pressure Location Rt brachial Position Sitting Respiration 16 Pulse 60 Pulse Source Pulse Oximeter Temp 98.4 F Temp Source Temporal Artery Scan Pulse Oximetry (%) 95 Oxygen Delivery Method Room Air Intake Visit Reasons: f/u on denial of wl medication Intake Note: Miladys presents in the office today to follow up on denial of medication. Allergies No Known Allergies Allergy (Verified 07/12/24 11:26) Tobacco use date assessed: 07/12/24 Fall risk assessment: 1 Fall in past year Last assessed Fall Risk: 07/12/24 Dental Screening Dental Screen Date: 07/12/24 Did you have a dental visit in the last 12 months?: Yes Did you have a dental problem in the last 6 months where you did not have access to dental care?: No Was dental information given to patient?: Patient has dentist HPI HPI Comments History of Present Illness Details This is a 79-year-old female with a past medical history of anxiety, hypertension, Hyperlipidemia, prediabetes , CKD stage IIIAvitamin-D deficiency, hypothyroidism, obesity and lung nodules presenting for follow up. Hypertension-taking amlodipine 5 mg and lisinopril 20 mg daily. Normotensive today. Hyperlipidemia- she started rosuvastatin 10 mg 8 weeks ago. Denies side effects. Prediabetes/obesity -insurance did not cover GLP 1. She has lost 3 lb. She is trying to eat a bit healthier. Anxiety and depression-prescribed fluoxetine 40 mg and Wellbutrin SR 150 mg twice daily and Xanax 0.25-0.5 mg as needed. She has had a lot more stress recently. Her brother has dementia. It is getting to the point where he can not be alone, and he is asking to move in with the patient and her . 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 He also has depression and anxiety. Hypothyroidism-taking levothyroxine 100 mcg once daily. TSH normal 01/2023. She has lab orders to do at [facility]. She had elevated LFTs. She had a liver ultrasound done at [facility] which showed mildly nodular contour. Patient reported having a liver biopsy with Dr. Alvarez in the past. 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 She has colonoscopies with Dr. Alvarez. Her liver ultrasound also showed cholelithiasis. She underwent cholecystectomy in July 2023. Her last colonoscopy was 10/11/2021. No polyps. Prior colonoscopy did have a tubular adenoma. Repeat colonoscopy was recommended in 5 years. Osteoporosis-patient started Fosamax May 2023. She is on calcium and vitamin-D supplementation. Multiple lung nodules-Per chest CT 03/22/2022 from [facility] bilateral pulmonary nodules not significantly changed. Per guidelines no further follow up needed. No cough, hemoptysis or unexplained weight loss. She is a nonsmoker. ROS: Constitutional: No unexplained weight loss, fever, chills, fatigue or night sweats. Eyes: No vision changes, blurry vision, double vision, eye pain, eye redness, eye discharge. ENT: No hearing loss, sneezing, congestion, runny nose or sore throat. Respiratory: No shortness of breath, cough or sputum production. Cardiovascular: No chest pain Gastrointestinal: No anorexia, nausea, vomiting or diarrhea. No abdominal pain or blood in stool. Neurologic: No headache, dizziness, syncope Psychiatric: No SI or HI. Physical exam: Constitutional: Alert, in no distress. Neck: Supple, Full range of motion. No lymphadenopathy. Respiratory: Clear to auscultation. Cardiovascular: S1 S2 regular. No murmurs Gastrointestinal: Abdomen soft, non-tender, non-distended. Normal bowel sounds. No palpable masses.. Psychiatric: Normal mood and affect [facility] Medical History (Updated 05/01/24 @ 12:29 by DOMINGO Benitez) CKD stage 3a, GFR 45-59 ml/min Prediabetes Decreased renal function Hyperlipidemia Elevated fasting blood sugar Risk for falls Vitamin D deficiency Tubular adenoma of colon Spinal stenosis Major depression, chronic Osteoporosis Obesity with serious comorbidity Multiple lung nodules on CT Hypothyroidism Hypertension Hepatic steatosis Fatigue DJD (degenerative joint disease), multiple sites Chronic constipation Cholelithiases Anxiety Surgical History History of cholecystectomy History of knee replacement History of shoulder surgery Social History (Updated 07/12/24 @ 11:29 by Anayeli Mueller MA) Housing: House Alcohol intake: never Patient Tobacco Use Status: Former Tobacco user Cigarette Packs Per Day: 1 Cigarettes Per Day: 20 Years Smoked: 25 e-Cigarette/Vaping Use: Never Used Second Hand Smoke Exposure: Yes service: No Current occupational status: retired Current occupational exposures/hazards: No Cognitive needs: No Hearing needs: No Vision needs: Yes Questionnaire Thrive Questionnaire Date Thrive assessed: 10/06/23 CARMELA-7 AMB Questionnaire CARMELA-7 Date CARMELA - 7 assessed: 10/06/23 Source: Developed by Drs. Jonnie Flores, Aide Paz, Saurabh Eagle and colleagues, with an educational juan ramon from [employer]. Physical exam (Primary Care) Vital Signs: Last Vital Signs Temp 98.4 F 07/12/24 11:29 Pulse 60 07/12/24 11:29 Resp 16 07/12/24 11:29 BP 120/68 07/12/24 11:29 Pulse Ox 95 07/12/24 11:29 Oxygen Delivery Method Room Air 07/12/24 11:29 BMI result Body Mass Index 30.9 Tobacco/Smoking Status: Tobacco use Status Tobacco use date assessed 07/12/24 07/12/24 11:29 Patient Tobacco Use Status Former Tobacco user 07/12/24 11:29 e-Cigarette/Vaping Use Never Used 07/12/24 11:29 Thrive Assessment: Date of Thrive Assessment Date Thrive assessed 10/06/23 07/12/24 11:26 Coding Level of Care Code Est Pt Level 4 (23378) Complex EM visit Add On G2211 Diagnoses Major depression, chronic F32.[address] nodules on CT R91.8 Acquired hypothyroidism E03.9 Hypothyroidism type: acquired Primary hypertension I10 Hypertension type: primary hypertension Hepatic steatosis K76.0 Prediabetes R73.03 Hyperlipidemia E78.5 Assessment & Plan Assessment & Plan (1) Major depression, chronic: Code(s): F32.9 - Major depressive disorder, single episode, unspecified Category: Medical Plan: Continue fluoxetine and bupropion. Continue Xanax as needed. Do not drive or operate heavy machinery or drink alcohol with this medication. She is aware it is addictive. (2) Multiple lung nodules on CT: Comment: Per chest CT 03/22/2022 from [facility] bilateral pulmonary nodules not significantly changed. Per guidelines no further follow up needed. Code(s): R91.8 - Other nonspecific abnormal finding of lung field Category: Medical (3) Hypothyroidism: Code(s): E03.9 - Hypothyroidism, unspecified Category: Medical Qualifiers: Hypothyroidism type: acquired Qualified Code(s): E03.9 - Hypothyroidism, unspecified Plan: Continue levothyroxine. Check TSH. (4) Hypertension: Code(s): I10 - Essential (primary) hypertension Category: Medical Qualifiers: Hypertension type: primary hypertension Qualified Code(s): I10 - Essential (primary) hypertension Plan: Well-controlled. Continue current regimen. (5) Hepatic steatosis: Code(s): K76.0 - Fatty (change of) liver, not elsewhere classified Category: Medical Plan: Recommended low-cholesterol diet and avoidance of alcohol. Followed by Gastroenterology. Monitor LFTs. (6) Prediabetes: Code(s): R73.03 - Prediabetes Category: Medical Plan: Insurance did not cover GLP 1. She can consider metformin but we would need to monitor renal function carefully. Recommended low carb, low sugar diet and avoidance of alcohol. (7) Hyperlipidemia: Code(s): E78.5 - Hyperlipidemia, unspecified Category: Medical Plan: Continue rosuvastatin. Check lipid profile. Plan Follow up in 6 months. Orders: Orders Hemoglobin A1c Today R73.03 - Prediabetes TSH reflex Free T4 Today E03.9 - Hypothyroidism, unspecified Medications: Refilled alprazolam (Xanax) 0.25 - 0.5 mg (1 - 2 x 0.25 mg) PO BEDTIME PRN 14 tabs 0RF anxiety
[2024-07-12 11:29] VITALS: BP 120/68; PULSE 60; RESP 16; TEMP 36.9; O2SAT 95; BMI 30.9
--- OUTSIDE RECORDS SUMMARY | 2024-07-12 11:36 | XMS_ITS | Clinical Summary ---
Author Organization [facility] Address [address] [place] [address] Care Team Providers Care Carbonizer Tester Name Role Phone Abiodun Christianson Primary Care [...] Smear Discontinued Zoster (Zostavax) Discontinued Care Teams Carbonizer Tester Relationship Specialty Start Date End Date Abiodun Christianson PCP - General 09/20/22
== END 2024-07-12 12:11 | disposition home or self-care (01) ==
LOC: HO.HMCFM 11:10
PROVIDERS: PCP Physician Assistant Medical; Visit Provider Physician Assistant Medical
DX: F32.9 Major depressive disorder, single episode, unspecified (principal); R91.8 Other nonspecific abnormal finding of lung field; E03.9 Hypothyroidism, unspecified; I10 Essential (primary) hypertension; K76.0 Fatty (change of) liver, not elsewhere classified; R73.03 Prediabetes; E78.5 Hyperlipidemia, unspecified

== ENCOUNTER → 2024-07-12 11:09 | Outpatient (BNVA) | payer MEDICARE, SELFPAY | PROVIDERS: PCP Physician Assistant Medical; Visit Provider Physician Assistant Medical | DX: I12.9 Hypertensive chronic kidney disease with stage 1 through stage 4 chronic kidney disease, or unspecified chronic kidney disease (principal); N18.30 Chronic kidney disease, stage 3 unspecified; E78.5 Hyperlipidemia, unspecified; E03.9 Hypothyroidism, unspecified; E66.9 Obesity, unspecified; R91.8 Other nonspecific abnormal finding of lung field; F32.9 Major depressive disorder, single episode, unspecified; K76.0 Fatty (change of) liver, not elsewhere classified; R73.03 Prediabetes | CPT/HCPCS: 99212 ==

== ENCOUNTER 2024-07-31 09:10 | Outpatient (REF) | payer MEDICARE, SELFPAY ==
--- OUTSIDE RECORDS SUMMARY | 2024-07-31 09:49 | XMS_ITS | Clinical Summary ---
Author Organization [facility] Address [address] [place] [address] Care Team Providers Care Fashion Buyer Name Role Phone Abiodun Christianson Primary Care [...] ( - 2023-2 5 season) 2023 Influenza (Season Ended) 2024 HPV Vaccine Aged Out No longer eligi [...] Smear Discontinued Zoster (Zostavax) Discontinued Care Teams Fashion Buyer Relationship Specialty Start Date End Date Abiodun Christianson PCP - General 09/20/22
[2024-07-31 12:08] LABS: Estimated Average Glucose 114 mg/dL; Hemoglobin A1c % 5.6 % (<6.0)
[2024-07-31 12:10] LABS: Alanine Aminotransferase 70 U/L (0-31); Aspartate Amino Transferase 71 U/L (5-31); Cholesterol 150 mg/dL (<200); HDL Cholesterol 47 mg/dL (>40); LDL Cholesterol Calculated 78 mg/dL (<100); Triglycerides 128 mg/dL (<150)
[2024-07-31 12:28] LABS: TSH reflex Free T4 1.37 uIU/mL (0.32-4.0)
== END 2024-07-31 09:11 | disposition home or self-care (01) ==
LOC: HO.WFDLDS 09:10
PROVIDERS: Visit Provider Physician Assistant Medical
DX: R73.03 Prediabetes (principal); R79.89 Other specified abnormal findings of blood chemistry; E78.5 Hyperlipidemia, unspecified; E03.9 Hypothyroidism, unspecified
CPT/HCPCS: 36415; 80061; 83036; 84443; 84450; 84460

== ENCOUNTER 2025-01-03 11:29 | Outpatient (AMB) | payer MEDICARE, SELFPAY ==
--- NOTE | 2025-01-03 11:49 | MHC.PC.OV ---
Vital Signs 01/03/25 11:52 Height 5 ft 1 in Weight 166 lb 2 oz BMI 31.4 BP 122/68 Blood Pressure Location Rt brachial Position Sitting Respiration 16 Pulse 59 Pulse Source Pulse Oximeter Temp 98.2 F Temp Source Temporal Artery Scan Pulse Oximetry (%) 95 Oxygen Delivery Method Room Air Intake Visit Reasons: dizziness/vertigo, resched Intake Note: Miladys presents in the office today for dizziness/vertigo and several falls. Allergies No Known Allergies Allergy (Verified 01/03/25 11:50) Tobacco use date assessed: 01/03/25 Fall risk assessment: 1 Fall in past year Last assessed Fall Risk: 01/03/25 Dental Screening Dental Screen Date: 07/18/24 Did you have a dental visit in the last 12 months?: Yes Did you have a dental problem in the last 6 months where you did not have access to dental care?: No Was dental information given to patient?: Patient has dentist HPI HPI Comments History of Present Illness Details This is a 79-year-old female with a past medical history of anxiety, hypertension, Hyperlipidemia, prediabetes , CKD stage IIIA, vitamin-D deficiency, hypothyroidism, obesity and lung nodules presenting for follow up. She endorses frequent mechanical falls wthin the past year. She is also chronically fatigued. She does take Xanax, but she never fall while taking this, and she has been out of it and still having these symptoms. Patient snores heavily. Endorses non restorative sleep. Hypertension-taking amlodipine 5 mg and lisinopril 20 mg daily. Hyperlipidemia- taking rosuvastatin. Prediabetes/obesity -insurance did not cover GLP 1. Anxiety and depression-prescribed fluoxetine 40 mg and Wellbutrin SR 150 mg twice daily and Xanax 0.25-0.5 mg as needed. She has had a lot more stress recently. Her brother has dementia. Hypothyroidism-taking levothyroxine 100 mcg once daily. TSH normal 01/2023. She has lab orders to do at [facility]. She had elevated LFTs. She had a liver ultrasound done at [facility] which showed mildly nodular contour. Patient reported having a liver biopsy with Dr. Alvarez in the past. 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 She has colonoscopies with Dr. Alvarez. Her liver ultrasound also showed cholelithiasis. She underwent cholecystectomy in July 2023. Her last colonoscopy was 10/11/2021. No polyps. Prior colonoscopy did have a tubular adenoma. Repeat colonoscopy was recommended in 5 years. Osteoporosis-patient started Fosamax May 2023. She is on calcium and vitamin-D supplementation. Multiple lung nodules-Per chest CT 03/22/2022 from [facility] bilateral pulmonary nodules not significantly changed. Per guidelines no further follow up needed. No cough, hemoptysis or unexplained weight loss. She is a nonsmoker. She also endorses bilateral hand pain around the finger joints. ROS: Constitutional: No unexplained weight loss, fever, chills, fatigue or night sweats. Eyes: No vision changes, blurry vision, double vision, eye pain, eye redness, eye discharge. ENT: No hearing loss, sneezing, congestion, runny nose or sore throat. Respiratory: No shortness of breath, cough or sputum production. Cardiovascular: No chest pain Gastrointestinal: No anorexia, nausea, vomiting or diarrhea. No abdominal pain or blood in stool. Neurologic: No headache, dizziness, syncope Psychiatric: No SI or HI. Physical exam: Constitutional: Alert, in no distress. Neck: Supple, Full range of motion. No lymphadenopathy. Respiratory: Clear to auscultation. Cardiovascular: S1 S2 regular. No murmurs Gastrointestinal: Abdomen soft, non-tender, non-distended. Normal bowel sounds. No palpable masses.. Psychiatric: Normal mood and affect [facility] Medical History (Updated 01/03/25 @ 12:23 by DOMINGO Benitez) Daytime somnolence Non-restorative sleep Frequent falls Bilateral hand pain Elevated LFTs CKD stage 3a, GFR 45-59 ml/min Prediabetes Decreased renal function Hyperlipidemia Elevated fasting blood sugar Risk for falls Vitamin D deficiency Tubular adenoma of colon Spinal stenosis Major depression, chronic Osteoporosis Obesity with serious comorbidity Multiple lung nodules on CT Hypothyroidism Hypertension Hepatic steatosis Fatigue DJD (degenerative joint disease), multiple sites Chronic constipation Cholelithiases Anxiety Surgical History History of cholecystectomy History of knee replacement History of shoulder surgery Social History (Updated 01/03/25 @ 11:51 by Anayeli Mueller CMA) Housing: House Alcohol intake: never Patient Tobacco Use Status: Former Tobacco user Cigarette Packs Per Day: 1 Cigarettes Per Day: 20 Years Smoked: 25 e-Cigarette/Vaping Use: Never Used Second Hand Smoke Exposure: Yes service: No Current occupational status: retired Current occupational exposures/hazards: No Cognitive needs: No Hearing needs: No Vision needs: Yes Questionnaire PHQ-9 Over the last 2 weeks, how often have you been bothered by any of the following problems? 1. Little interest or pleasure in doing things: several days Source: Developed by Drs. Jonnie Flores, Saurabh Villagomez and colleagues, with an educational juan ramon from [employer]. Thrive Questionnaire Date Thrive assessed: 10/06/23 CARMELA-7 AMB Questionnaire CARMELA-7 Date CARMELA - 7 assessed: 10/06/23 Source: Developed by Drs. Jonnie Flores, Aide Paz, Saurabh Eagle and colleagues, with an educational juan ramon from [employer]. Physical exam (Primary Care) Vital Signs: Last Vital Signs Temp 98.2 F 01/03/25 11:52 Pulse 59 01/03/25 11:52 Resp 16 01/03/25 11:52 BP 122/68 01/03/25 11:52 Pulse Ox 95 01/03/25 11:52 Oxygen Delivery Method Room Air 01/03/25 11:52 BMI result Body Mass Index 31.4 Tobacco/Smoking Status: Tobacco use Status Tobacco use date assessed 01/03/25 01/03/25 11:56 Patient Tobacco Use Status Former Tobacco user 01/03/25 11:56 e-Cigarette/Vaping Use Never Used 01/03/25 11:56 Thrive Assessment: Date of Thrive Assessment Date Thrive assessed 10/06/23 01/03/25 11:56 Office Procedures EKG Details: EKG shows sinus bradycardia, ventricular rate 58 beats per minute, minimal voltage criteria for LVH which may be a normal variant (are in aVL) 17594-Mfvnvsxsnfxcbczcs, Complete Coding Level of Care Code Est Pt Level 5 (17928) Diagnoses Bilateral hand pain M79.641; M79.642 Fatigue R53.83 Primary hypertension I10 Hypertension type: primary hypertension Hyperlipidemia E78.5 Anxiety F41.9 Major depression, chronic F32.9 Frequent falls R29.6 CPT Codes EKG - CPT: 00737-Usuxzllxduktgcefo, Complete ([id number]) Time Spent (min) 45 Comment Direct patient care, completing documentation Assessment & Plan Assessment & Plan (1) Bilateral hand pain: Code(s): M79.641 - Pain in right hand; M79.642 - Pain in left hand Category: Medical Plan: Check x-rays and rheumatoid factor. Patient would like rheumatology referral. Placed. (2) Fatigue: Code(s): R53.83 - Other fatigue Category: Medical Plan: Differential reviewed with patient. Check MRI given frequent falls and check sleep study. EKG nonischemic. Very mild bradycardia. Possible LVH. Echocardiogram ordered. (3) Hypertension: Code(s): I10 - Essential (primary) hypertension Category: Medical Qualifiers: Hypertension type: primary hypertension Qualified Code(s): I10 - Essential (primary) hypertension Plan: Controlled. Continue current medication. Recommended low-sodium diet. (4) Hyperlipidemia: Code(s): E78.5 - Hyperlipidemia, unspecified Category: Medical Plan: LDL at goal. Continue lifestyle modification. Continue statin. (5) Anxiety: Code(s): F41.9 - Anxiety disorder, unspecified Category: Medical Plan: Continue current medications for anxiety and depression. (6) Major depression, chronic: Code(s): F32.9 - Major depressive disorder, single episode, unspecified Category: Medical (7) Frequent falls: Code(s): R29.6 - Repeated falls Category: Medical Plan: Check labs, MRI of the brain, refer to physical therapy for gait coordination, strengthening and fall prevention. Plan Follow up in 8 weeks. Orders: Orders XR Hand Bilat min 3v 01/03/25 M79.641 - Pain in right hand, M79.642 - Pain in left hand PT Evaluation and Treatment 01/03/25 R29.6 - Repeated falls RT home sleep study 01/03/25 G47.8 - Other sleep disorders, R40.0 - Somnolence Complete Blood Count Auto Diff 01/03/25 E03.9 - Hypothyroidism, unspecified, E55.9 - Vitamin D deficiency, unspecified, K76.0 - Fatty (change of) liver, not elsewhere classified, M81.0 - Age-related osteoporosis without current pathological fracture, N18.31 - Chronic kidney disease, stage 3a, R73.03 - Prediabetes Comprehensive Met. Panel 01/03/25 E03.9 - Hypothyroidism, unspecified, E55.9 - Vitamin D deficiency, unspecified, K76.0 - Fatty (change of) liver, not elsewhere classified, M81.0 - Age-related osteoporosis without current pathological fracture, N18.31 - Chronic kidney disease, stage 3a, R73.03 - Prediabetes UA w Microscopic 01/03/25 E03.9 - Hypothyroidism, unspecified, E55.9 - Vitamin D deficiency, unspecified, K76.0 - Fatty (change of) liver, not elsewhere classified, M81.0 - Age-related osteoporosis without current pathological fracture, N18.31 - Chronic kidney disease, stage 3a, R39.9 - Unspecified symptoms and signs involving the genitourinary system, R73.03 - Prediabetes AMB EKG-In Office 01/03/25 R53.83 - Other fatigue CA echo transthoracic complete 01/03/25 I10 - Essential (primary) hypertension, R53.83 - Other fatigue Rheumatoid Factor Today M79.641 - Pain in right hand, M79.642 - Pain in left hand TSH reflex Free T4 01/03/25 E03.9 - Hypothyroidism, unspecified, E55.9 - Vitamin D deficiency, unspecified, K76.0 - Fatty (change of) liver, not elsewhere classified, M81.0 - Age-related osteoporosis without current pathological fracture, N18.31 - Chronic kidney disease, stage 3a, R73.03 - Prediabetes Vitamin B12 01/03/25 E03.9 - Hypothyroidism, unspecified, E55.9 - Vitamin D deficiency, unspecified, K76.0 - Fatty (change of) liver, not elsewhere classified, M81.0 - Age-related osteoporosis without current pathological fracture, N18.31 - Chronic kidney disease, stage 3a, R73.03 - Prediabetes, Z91.89 - Other specified personal risk factors, not elsewhere classified Vitamin D 25-OH (D2 and D3) 01/03/25 E03.9 - Hypothyroidism, unspecified, E55.9 - Vitamin D deficiency, unspecified, K76.0 - Fatty (change of) liver, not elsewhere classified, M81.0 - Age-related osteoporosis without current pathological fracture, M85.80 - Other specified disorders of bone density and structure, unspecified site, N18.31 - Chronic kidney disease, stage 3a, R73.03 - Prediabetes Hemoglobin A1c 01/03/25 E03.9 - Hypothyroidism, unspecified, E55.9 - Vitamin D deficiency, unspecified, K76.0 - Fatty (change of) liver, not elsewhere classified, M81.0 - Age-related osteoporosis without current pathological fracture, N18.31 - Chronic kidney disease, stage 3a, R73.03 - Prediabetes, R73.9 - Hyperglycemia, unspecified Magnesium 01/03/25 E03.9 - Hypothyroidism, unspecified, E55.9 - Vitamin D deficiency, unspecified, K76.0 - Fatty (change of) liver, not elsewhere classified, M81.0 - Age-related osteoporosis without current pathological fracture, N18.31 - Chronic kidney disease, stage 3a, R73.03 - Prediabetes MR head/brain wo con Today R29.6 - Repeated falls, R53.83 - Other fatigue Referrals Rheumatology Referral M79.641 - Pain in right hand, M79.642 - Pain in left hand Medications: Refilled alprazolam (Xanax) 0.25 - 0.5 mg (1 - 2 x 0.25 mg) PO BEDTIME PRN 14 tabs 0RF anxiety albuterol sulfate 90 mcg/actuation 2 inhalations inhalation .every 4 hours PRN 8.5 grams 1RF shortness of breath or wheezing 30 days
[2025-01-03 11:52] VITALS: BP 122/68; PULSE 59; RESP 16; TEMP 36.8; O2SAT 95; BMI 31.4
--- OUTSIDE RECORDS SUMMARY | 2025-01-03 17:47 | XMS_ITS | Continuity of Care Document ---
Author Organization [facility] Address [address] [place] [address] Care Team Providers Care General Manager Food Name Role Phone NASRA SHEA Primary Care Provider Assessment No assessment recorded. Plan of Treatment Reminders Order Date Submit Date Provider Last Modified By Organization Details Last Modified Time Details Appointments None recorded. Lab None recorded. Referral physical therapist referral 2024 025 [email or web address] Not available 07:30:01 Procedures None recorded. Surgeries None recorded. Imaging XR, hip + pelvis, unilateral , 2 or 3 view - 101 2024 025 [email or web address] [facility], [address], [facility] [address], [place], [address], 5 09:22:20 Medication Orders meloxicam 15 mg tablet 2024 025 GEOVANNY [id number], [address] [place], [address], 5 08:54:05 Patient TargetsNo targets recorded. Patient InstructionsNo instructions recorded. Reason for Referral Physical Therapist Referral for Trochanteric bursitis of right hip Referring Physician: Steven Wilder, Orthopedic Surgery, Encounter Date: 12/01/2024 Results Created Date Observation Date Name Description Value Unit Range Abnormal Flag Note LastModifiedBy Organization Detail LastModifiedTime 12/02/19 25 12/01/2024 XR, hip + pelvi s, unila teral , 2 or 3 view http:/ [email or web address] ?Encry pted=s hAaTro YD8dLq bEUv6g %2BXZw aYqtaq 0bqfl% 2Fg9IQ a4ajBk vP9nXo QUaueC m3YtLR FvZlgJ JJ8mAn HZtai3 2h2877 AC0KlY n2CVaa vKiQtr MwF INTERFACE [facility] [address] [facility] [address], [place], [address], 12/01/2024 08:44:25 Result Notes Documentation Provider Name and Address Organization Details Recorded Time Xr, Hip + Pelvis, Unilateral, 2 Or 3 View : [email or web address] Encrypted=hzRnJlgIQ0kUaoK Uv6g%0MQGqjFdyzi0syol%2Fg 1GZd9dlJzrZ0xJrBOefkPy9Uz LMYrBitUSX4pHuBNgvn38t809 7HM0BzHy0SNbgcKuLjtSqG Not Available [facility] 12/01/2024 08:44: 26 Problems Name Problem SNOMED Code Status Onset Date Resolution Date Notes Provider Name and Address Organization Details Recorded Time Knee joint prosthesi s present 157274859773 Active 2017 Problem Code: Z96.653; Problem Code Type: ICD-10; Status: 'A'; Not Available [facility] 4 11:42:42 Problem Notes None recorded. Medical Equipment None Reported. Allergies Allergen ID Allergen Name Allergen Category Reaction Reaction Severity Criticality Documentation Date Start Date Code Code System Note Provider Name and Address Organization Details Recorded Time 73660 Bactrim medicatio n Not available Not available Not available 04/18/20232016 34088 9 RxNorm Aller gyRea ction : 'Skin React ion'; Not Available [facility] 4 13:27:47 Medications Name Sig Start Date Stop Date Status Note LastModified by Organization Details LastModified Time fluoxetine 40 mg capsule TAKE ONE CAPSULE BY MOUTH EVERY DAY active Not Available Not Available No t Available amoxicillin 500 mg capsule TAKE ONE CAPSULE BY MOUTH EVERY 8 HOURS FOR 7 DAYS 12/01 completed Not Available Not Available Not Available bupropion HCl SR 150 mg tablet,12 hr sustained-r elease TAKE ONE TABLET BY MOUTH TWICE A DAY active Not Available Not Available No t Available meloxicam 15 mg tablet Take 1 tablet every day by oral route with meal(s) for 30 days. 12/01 completed Not Available Not Available Not Available lisinopril 20 mg tablet TAKE ONE TABLET BY MOUTH EVERY DAY active Not Available Not Available No t Available alendronate 70 mg tablet TAKE ONE TABLET BY MOUTH EVERY WEEK 12/01 completed Not Available Not Available Not Available amlodipine 5 mg tablet TAKE ONE TABLET BY MOUTH EVERY DAY 12/01 completed Not Available Not Available Not Available levothyroxi ne 100 mcg tablet TAKE ONE TABLET BY MOUTH EVERY DAY active Not Available Not Available No t Available alprazolam 0.25 mg tablet TAKE ONE TO TWO TABLETS BY MOUTH AT BEDTIME NEEDED FOR ANXIETY 12/01 completed Not Available Not Available Not Available pseudoephed rine-guaife nesin ER 80-700 mg tablet,exte nded release 1-2 q 4-6 hrs prn pain 12/01 completed Statu s: 'Curr ent'; Not Available Not Available Not Available albuterol sulfate HFA 90 mcg/actuati on aerosol inhaler INHALE TWO PUFFS BY MOUTH EVERY 4 HOURS NEEDED FOR SHORTNESS OF BREATH OR WHEEZING 12/01 completed Not Available Not Available Not Available rosuvastati n 10 mg tablet TAKE ONE TABLET BY MOUTH DAILY AT BEDTIME active Not Available Not Available No t Available lactulose 10 gram/15 mL oral solution TAKE 30 ML BY MOUTH TWO TIMES A DAY 12/01 completed Not Available Not Available Not Available Flector 12 HRS ON 12 HRS OFF 12/01 completed Statu s: 'Curr ent'; Not Available Not Available Not Available oxycodone HCl-oxycodo ne-ASA 1 Q 6HRS PRN PAINDO NOT DRIVE WHILE ON THIS MEDICATIO N 12/01 completed Statu s: 'Curr ent'; Not Available Not Available Not Available Linzess Linzess 290MCG Capsule 11/13 completed Statu s: 'Disc ontin ued'; Not Available Not Available Not Available Vitals Date Recorded Body height Body mass index (BMI) Body weight Provider Name and Address Organization Details Last Updated DateTime 12/01/2024 154.94 cm 31 kg/m2 10760.15 g JESSE KEVAN [place] - [facility] 12/01/2024 08:39:16 Social History None recorded. Functional Status None recorded. Mental Status None recorded. Family History Nothing Reported. Medical History No medical history recorded. Gynecological HistoryNo gynecological history recorded. Obstetrics History GPAL:G 0 P 0 0 0 0 Past Encounters Encounter ID Performer Location Encounter Start Date Encounter Closed Date Diagnosis/Indication Diagnosis SNOMED-CT Code Diagnosis ICD10 Code Diagnosis IMO Codes Diagnosis Note [id number] MARIETTA Cooper [address] [place] [address] 12/01/2024 08:34:37 12/18/2024 12:16:21 Pain of right hip joint 6809679229 37691 M25.551 828601 Trochanter ic bursitis of right hip 8441665053 19340 M70.61 [id number] Health Concerns Section Related Observation LastModified by Organization Detai ls LastModified Time None Recorded Concern Status LastModified by Organization Details LastModified Time None Recorded Payers Encounter Date Sequence Insurance Name Policy Number Policy Ovalle Covered Member ID Ovalle Member ID Guarantor Name 12/01/2024 1 [place] [employer] Miladys Montiel [id number] Miladys Montiel 12/01/2024 2 [place] [id number] Miladys Montiel [id number] Miladys Montiel Notes Date Note Type Note Provider Name and Address Organization Details Recorded Time 12/01/2024 text/html ROS as noted in the HPI I am seeing the patient today under the supervision of Dr. Saravia who was available but who did not see the patient. HPI:Patient is a 79-year-old female who presents to the office today with complaint of right hip pain. Patient's had right hip pain going on for a while. She has had multiple falls but has not fallen onto her hip it has primarily been onto her knees. Pains made worse with prolonged walking, sitting as well as sleeping on her right side. Pain is located to be primarily in the lateral aspect of her hip. Denies any groin pain. Denies any numbness or tingling of the right lower extremity. Currently not utilizing any medications for pain relief. Past family, medical, social history and review of systems has been reviewed, updated and is located in the patient s chart. Examination: Well-appearing 79-year-old female in no acute distress. Alert and oriented x 3. She ambulates with symmetric gait. Examination of the right hip reveals no erythema, warmth, ecchymosis, swelling. Tenderness palpation present to the greater trochanter. Full range of motion of the hip in all directions with no discomfort. Hip strength 5/5 against resistance in all directions. Negative ABDOULAYE test. Negative Stinchfield test. Calf soft nontender. 2 views of the right hip obtained and independently reviewed in the office today reveals well-preserved joint space throughout the hip. No calcification noted of the greater trochanter. No fracture noted. Mild lumbar spine degenerative changes noted. Impression:Right hip trochanteric bursitis Plan:We discussed the role of conservative management including medications, physical therapy, injections. Patient wants to avoid injections for now. She does not want to try something for pain so she was given prescription for meloxicam 15 mg which she will utilize once daily in the morning with food avoid upset stomach. Advised not to utilize any other anti-inflammatory medications while she is taking this with medication interaction as well as kidney issues. Patient also provided with outpatient physical therapy prescription. Will continue to monitor symptoms. If no significant difference in the next 6 to 8 weeks I recommend cortisone injection. Patient agrees with the treatment plan. At this time all patient questions and concerns answered and addressed today. Steven Wilder PA-C [address], [place], [address], [facility] - [facility] 12/01/2024 09:06:43 OBGyn Episode No OBEpisode recorded.
--- OUTSIDE RECORDS SUMMARY | 2025-01-03 17:47 | XMS_ITS | Clinical Summary ---
Author Organization [employer] [facility] it Address [address] [place] [address] Care Team Providers Care Singing Messenger Name Role Phone Kinga Brandt MD Primary Care Provider [phone] Medications lactulose (Constulose) solutionIndicatio ns:Constipation, unspecified constipation type Take 30 ml by mouth two times a day 1800 mL 1 5 Active lactulose (Constulose) solutionIndicatio ns:Constipation, unspecified constipation type Take 30 ml by mouth two times a day 1800 mL 1 5 12/07/19 25 Discontinu ed(Reorder ) Social History Tobacco Use Types Packs/Day Years Used Date Smoking Tobacco: Never Assessed Comments Unknown Sex and Gender Information Value Date Recorded Sex Assigned at Not on file Legal Sex Female 1:44 AM EST Gender Identity Not on file Sexual Orientation Not on file Plan of Treatment Upcoming Encounters Date Type Department Care Team (Late st Contact Info) Description 07/05/2025 1:20 PM EDT Office Visit Gastroenterology - [address] [phone] Radha Lopez NP [address] [address] Health Maintenance Due Date Last Done Comments DTaP,Tdap,and Td Vaccines (1 - Tdap) 06/12/1966 Pneumococcal Vaccine: 50+ Ye ars (1 of 1 - PCV) 06/12/1997 Zoster Vaccines (1 of 2) 06/12/1997 Falls Risk Assessment 01/17/2022 Hepatitis C Screening 01/17/2022 Medicare Annual Wellness Visit 01/17/2022 Osteoporosis Screening (Bone Density Screening) 01/17/2022 Social Influencers of Health Screening 01/17/2022 RSV Immunization Adult Patie nts (1 - 1-dose 75+ series) 06/12/2022 Depression Screening 02/15/2024 COVID-19 Vaccine ( - 2024-2 6 season) 2024 Influenza Vaccine (#1) 2024 HIB Vaccines Aged Out No longer eligi ble based on patient's age to complete this topic HPV Vaccines Aged Out No longer eligi ble based on patient's age to complete this topic Hepatitis A Vaccines Aged Out No long er eligible based on patient's age to complete this topic Hepatitis B Vaccines Aged Out No long er eligible based on patient's age to complete this topic IPV Vaccines Aged Out No longer eligi ble based on patient's age to complete this topic MMR Vaccines Aged Out No longer eligi ble based on patient's age to complete this topic Meningococcal ACWY Vaccine Aged Out N o longer eligible based on patient's age to complete this topic Meningococcal B Vaccine Aged Out No l onger eligible based on patient's age to complete this topic RSV Immunization Patients Un brent 20 months Aged Out No longer eligible b ased on patient's age to complete this topic Varicella Vaccines Aged Out No longer eligible based on patient's age to complete this topic Insurance MEDICARE [facility] MEDICAID - [place] Care Teams Singing Messenger Relationship Specialty Start Date End Date Kinga Brandt MD [address] [place] [address] PCP - General 06/01/14
--- OUTSIDE RECORDS SUMMARY | 2025-01-03 17:47 | XMS_ITS | Clinical Summary ---
Author Organization [facility] Address [address] [place] [address] Care Team Providers Care Seat Mender Name Role Phone Kinga Brandt MD Primary Care Provider + Allergies Active Allergy Reactions Criticality Noted Date Comments Sulfamethoxazole-Trimethop rim Unknown/Patient and Family Unable to Define Medium 06/05/2020 Oxycodone-Acetaminophen GI Intolerance/Nausea/Vomiting Low 06/05/2020 Hydrocodone-Acetaminophen GI Intolerance/Nausea/Vomiting Low 06/05/2020 Medications levothyroxine (Synthroid) 112 MCG tablet Take 112 [...] muscle spasms. Active traMADol (ULTRAM) 50 MG tabletIndicatio ns:Pain, dental Take 1 tablet (50 mg total) by mouth 3 times daily (every 8 hours) as needed for moderate pain or severe pain. 9 tablet 06/05/2020 Active amoxicillin (AMOXIL) 500 MG capsuleIndicati ons:Pain, dental Take 1 capsule (500 mg total) by mouth 3 (three) times a day. 15 capsule 06/05/2020 Active ibuprofen (MOTRIN) 600 MG tabletIndicatio ns:Pain, dental Take 1 tablet (600 mg total) [...] 0.6 oz pur e alcohol) 6x year Comments Unknown Sex and Gender Information Value Date Recorded Sex Assigned at Not on file Legal Sex Female 12:02 PM EST Gender Identity Not on file Sexual Orientation Not on file Last Filed Vital Signs Vital Sign Reading Time Taken Comments Blood Pressure 150/67 06/05/2020 10:30 AM EDT Pulse 56 06/05/2020 10:30 AM EDT Temperature 36.5 C (97.7 F) 06/05/2020 9:34 AM EDT Respiratory Rate 16 06/05/2020 10:15 AM EDT Oxygen Saturation 94% 06/05/2020 10:30 AM EDT Inhaled Oxygen Concentration - - Weight 72.6 kg (160 lb) 05/15/2020 10:13 AM EDT Height 154.9 cm (5' 1 ) 05/15/2020 10:13 AM EDT Body Mass Index 30.23 05/15/2020 10:13 AM EDT Plan of Treatment Health Maintenance Due Date Last Done Comments Advance Care Planning 1945 Hepatitis C Virus Screening 1945 DTaP/Tdap/Td Vaccines (1 - Tdap) 06/12/1966 Pneumococcal Vaccines 50+ (1 of 1 - PCV) 06/12/1997 Zoster (Shingles) Vaccine (1 of 2) 06/12/1997 DXA Bone Density (Females,Ag es 65 and older) 06/12/2012 RSV Vaccine 50 years and old er and Patients (1 - 1-dose 75+ series) 06/12/2022 Influenza Vaccine 09/14/2024 COVID-19 Vaccine (1 - 2023-2 5 season) 2024 Hepatitis B Vaccines Aged Out No long er eligible based on patient's age to complete this topic Insurance MEDICARE PART A & B [facility] Advance Directives * Full Code (Latest Code Status on File) Date Activated Date Inactivated Comments 06/05/2020 7:22 AM Question Answer Comments Decision Thoroughly Discussed with: Patient Care Teams Seat Mender Relationship Specialty Start Date End Date Kinga Brandt MD [address] [place] [address] PCP - General 04/22/20
--- OUTSIDE RECORDS SUMMARY | 2025-01-03 17:47 | XMS_ITS | Clinical Summary ---
Author Organization [facility] Address [address] [place] [address] Care Team Providers Care Byproducts Extractor Name Role Phone Abiodun Christianson Primary Care [...] 75+ series) 06/12/2022 COVID-19 Vaccine ( - 2024-2 6 season) 2024 Influenza (#1) 2024 HPV Vaccine (No Doses Required) Completed Hep A Aged Out No longer eligi [...] Smear Discontinued Zoster (Zostavax) Discontinued Care Teams Byproducts Extractor Relationship Specialty Start Date End Date Abiodun Christianson PCP - General 09/20/22
--- OUTSIDE RECORDS SUMMARY | 2025-01-03 17:47 | XMS_ITS | Data Portability ---
Author Organization [facility], [facility] Address [address] [place] [address] Care Team Providers Care Enamel Drier Name Role Phone NASRA SHEA Primary Care Provider [phone] Assessment No assessment recorded. Plan of Treatment Reminders Order Date Submit Date Provider Last Modified By Organization Details Last Modified Time Details Appointments None recorded. Lab None recorded. Referral physical therapist referral 2024 025 [email or web address] Not available 07:30:01 Procedures None recorded. Surgeries None recorded. Imaging XR, hip + pelvis, unilateral , 2 or 3 view - 101 2024 025 [email or web address] [facility], [address] [facility], [facility] [address], [place], [address], 5 09:22:20 Medication Orders meloxicam 15 mg tablet 2024 025 LONGS [id number], [address] [place], [address], 5 08:54:05 Patient TargetsNo targets recorded. Patient [...] [id number] [id number] [id number] vKiQtr MwF INTERFACE [facility] Office [address] [facility] [address], [place], [address], 12/01/2024 08:44:25 Result Notes Documentation Provider Name and Address Organization Details Recorded Time Xr, Hip + Pelvis, Unilateral, 2 Or 3 View : [email or web address] Encrypted=[email or web address] [email or web address]%2Fg [id number] Not Available [facility] 12/01/2024 08:44: 26 Problems Name Problem SNOMED Code Status Onset Date Resolution Date Notes Provider Name and Address Organization Details Recorded Time Knee joint prosthesi s present 044493401237 Active 2017 Problem Code: Z96.653; Problem Code Type: ICD-10; Status: 'A'; Not Available [facility] 4 11:42:42 Problem Notes None recorded. Medical Equipment None Reported. Allergies Allergen ID Allergen Name Allergen Category Reaction Reaction Severity Criticality Documentation Date Start Date Code Code System Note Provider Name and Address Organization Details Recorded Time 06073 Bactrim medicatio n Not available Not available Not available 04/18/20232016 04403 9 RxNorm Aller gyRea ction : 'Skin React ion'; Not Available [facility] 13:27:47 Medications Name Sig Start Date Stop [...] Updated DateTime 12/01/2024 154.94 cm 31 kg/m2 52329.15 g JESSE [place] [facility] 12/01/2024 08:39:16 Social History None recorded. Functional Status None recorded. Mental Status None recorded. Family History Nothing Reported. Medical History No medical history recorded. Gynecological HistoryNo gynecological history recorded. Obstetrics History GPAL:G 0 P 0 0 0 0 Past Encounters Encounter ID Performer Location Encounter Start Date Encounter Closed Date Diagnosis/Indication Diagnosis SNOMED-CT Code Diagnosis ICD10 Code Diagnosis IMO Codes Diagnosis Note [id number] MARIETTA Cooper [address] [place] [address] 12/01/2024 08:34:37 12/18/2024 12:16:21 Pain of right hip joint 6644026031 81484 M25.551 710274 Trochanter ic bursitis of right hip 3019705347 39349 M70.61 5223449 Health Concerns Section Related Observation LastModified by Organization Detai ls LastModified Time None Recorded Concern Status LastModified by Organization Details LastModified Time None Recorded Advance Directives Directive None Recorded Payers Insurance Date Sequence Insurance Name Policy Number Policy Ovalle Covered Member ID Ovalle Member ID Guarantor Name 12/01/2024 1 [place] [employer] Miladys Montiel [id number] Miladys Montiel 12/18/2024 2 [place]) [id number] Miladys Montiel [id number] Miladys Montiel Notes Date Note Type [...] Wilder PA-C [address], [place], [address], [facility] - [facility] 12/01/2024 09:06:43 OBGyn Episode No OBEpisode recorded.
== END 2025-01-03 13:09 | disposition home or self-care (01) ==
LOC: HO.HMCFM 11:30
PROVIDERS: PCP Physician Assistant Medical; Visit Provider Physician Assistant Medical
DX: R42 Dizziness and giddiness (principal); R29.6 Repeated falls; I10 Essential (primary) hypertension

== ENCOUNTER → 2025-01-03 11:29 | Outpatient (BNVA) | payer MEDICARE, SELFPAY | PROVIDERS: PCP Physician Assistant Medical; Visit Provider Physician Assistant Medical | DX: R42 Dizziness and giddiness (principal); I10 Essential (primary) hypertension; E78.5 Hyperlipidemia, unspecified; R73.03 Prediabetes; E66.9 Obesity, unspecified; E03.9 Hypothyroidism, unspecified; R79.89 Other specified abnormal findings of blood chemistry; M81.0 Age-related osteoporosis without current pathological fracture; R91.8 Other nonspecific abnormal finding of lung field; M79.641 Pain in right hand; M79.642 Pain in left hand; R53.82 Chronic fatigue, unspecified; F41.9 Anxiety disorder, unspecified; F32.9 Major depressive disorder, single episode, unspecified; R29.6 Repeated falls | CPT/HCPCS: 93005; 99212 ==

== ENCOUNTER → 2025-02-10 09:34 | Outpatient (BNV) | payer MEDICARE, SELFPAY | PROVIDERS: PCP Physician Assistant Medical; Visit Provider Radiology Diagnostic Radiology | DX: R29.6 Repeated falls (principal); I67.82 Cerebral ischemia; R90.82 White matter disease, unspecified | CPT/HCPCS: 70551 ==

== ENCOUNTER 2025-02-10 09:35 | Outpatient (REF) | payer MEDICARE, SELFPAY ==
--- NOTE | ~2025-02-10 | MR_ITS ---
EXAMINATION: MR BRAIN WITHOUT IV CONTRAST HISTORY: R29.6 - Repeated falls TECHNIQUE: Sagittal T1, and axial T1, FLAIR, T2, gradient echo, and diffusion weighted MR images of the brain were obtained. COMPARISON: There are no prior studies available for comparison. FINDINGS: The pituitary is normal in size. The cerebellar tonsils are normally located. There is diffuse prominence of the ventricular system and cortical sulci, consistent with atrophy. Periventricular and subcortical white matter hyperintensities are noted on the FLAIR and T2-weighted images which are nonspecific, but often seen in the setting of small vessel ischemic disease. There is no mass effect or midline shift. No intra or extra-axial fluid collections are identified. There are no foci of restricted diffusion. Normal vascular flow voids are noted in the basilar and carotid arteries. The visualized paranasal sinuses are clear. MR/MR head/brain wo con IMPRESSION: Diffuse cerebral atrophy and findings consistent with small vessel ischemic disease of the white matter as described. Electronically signed by: Jonnie Leon MD 02/11/2025 07:34 AM [facility]
--- OUTSIDE RECORDS SUMMARY | 2025-02-10 09:41 | XMS_ITS | Clinical Summary ---
Author Organization [facility] Address [address] [place] [address] Care Team Providers Care Magazine Filler Name Role Phone Abiodun Christianson Primary Care [...] Smear Discontinued Zoster (Zostavax) Discontinued Care Teams Magazine Filler Relationship Specialty Start Date End Date Abiodun Christianson PCP - General 09/20/22
--- OUTSIDE RECORDS SUMMARY | 2025-02-10 09:41 | XMS_ITS | Clinical Summary ---
Author Organization [employer] [facility] it Address [address] [place] [address] Care Team Providers Care Metal Shaping Machine Operator Name Role Phone Kinga Brandt MD Primary Care Provider [phone] Medications lactulose (Constulose) solutionIndicatio ns:Constipation, unspecified constipation type Take 30 ml by mouth two times a day 1800 mL 1 12/06/2024 Active Social History Tobacco Use Types Packs/Day Years Used Date Smoking Tobacco: Never Assessed Comments Unknown Sex and Gender Information Value Date Recorded Sex Assigned at Not on file Legal Sex Female 1:44 AM EST Gender Identity Not on file Sexual Orientation Not on file Plan of Treatment Upcoming Encounters Date Type Department Care Team ([facility] Contact Info) Description 07/05/2025 1:20 PM EDT Office Visit Gastroenterology - [address] [phone] Radha Lopez NP [address] [address] Health Maintenance Due Date Last Done Comments [...] series) 06/12/2022 Depression Screening 02/15/2024 COVID-19 Vaccine (1 2024-2 6 season) 2024 Influenza Vaccine (#1) [...] age to complete this topic Insurance MEDICARE [place] Care Teams Metal Shaping Machine Operator Relationship Specialty Start Date End Date Kinga Brandt MD [address] [place] [address] PCP - General 06/01/14
--- OUTSIDE RECORDS SUMMARY | 2025-02-10 09:41 | XMS_ITS | Continuity of Care Document ---
Author Organization [facility], ELIE Lopez 1[address] Floor Address [address] [place] [address] Care Team Providers Care Clamshell Engineer Name Role Phone Dea Dodd Primary Care Provider Assessment No assessment recorded. Plan of Treatment Reminders Order Date Submit Date Provider Name Organization Details Last Modified By Last Modified Time Details Appointments None recor ded. Lab None recor ded. Referral physi delbert thera pist refer ral 2024 08:51: 58 025 Steven Wilder PA-C Not available CHARLIE LIZAMA 07:30:01 Procedures None recor ded. Surgeries None recor ded. Imaging XR, hip + pelvi s, unila teral , 2 or 3 view 2024 08:38: 52 025 Steven Wilder PA-C [facility] Office [address], [place], [address], Steven Wilder PA-C 09:22:20 MedicationOrder s melox icam 15 mg table t 2024 08:51: 00 [id number] [facility], [address], Ph [phone] Not Available Not available 08:54:05 Take 1 tablet every day by oral route with meal(s) for 30 days. VaccineOrders None recor ded. Patient TargetsNo targets recorded. Patient InstructionsNo instructions recorded. Reason for Referral Physical Therapist Referral for Trochanteric bursitis of right hip Referring Physician: Steven Wilder, Orthopedic Surgery, Encounter Date: 12/01/2024 Results Created Date Observation Date Name Description Value Unit Range Abnormal Flag Specimen Type Note LastModifiedBy Organization Detail LastModifiedTime 12/01/2024 12/01/2024 xr hip + pelvis, unilateral 2 or 3 view, [address] [email or web address]=[email or web address] [id number] Not Available [facility] , [address] [facility] [address] , [place] , [address], , 12/01/2024 08:44:26 Result Notes Documentation Provider Name and Address Organization Details Recorded Time Xr, Hip + Pelvis, Unilateral, 2 Or 3 View : [email or web address] Encrypted=asHeEasWW5nDnkQ [email or web address]%5GWJhxYiaed5viob%2Fg 7LCn5rtUvjY7uUjKQhixAx6Yf [id number] 6IR6IkPo0HVijjJlGrzCnQ Not Available [facility] 12/01/2024 08:44: 26 Problems Name Problem SNOMED Code Status Onset Date Resolution Date Notes Provider Name and Address Organization Details Recorded Time Knee joint prosthesi s present 441073107734 Active 2017 Problem Code: Z96.653; Problem Code Type: ICD-10; Status: 'A'; Not Available [facility] 4 11:42:42 Problem Notes None recorded. Medical Equipment None Reported. Allergies Allergen ID Allergen Name Allergen Category Reaction Reaction Severity Criticality Documentation Date Start Date Code Code System Note Provider Name and Address Organization Details Recorded Time 49304 Bactrim medicatio n Not available Not available Not available 04/18/20232016 86634 9 RxNorm Aller gyRea ction : 'Skin React ion'; Not Available [facility] 4 13:27:47 Medications Name Authored On Sig Start Date Stop Date Status Note Indication Fill Status Repeat Number Dispense Quantity LastModified by Organization Details LastModified Time Linze ss 4 15:08:00 Linz ess 290M CG Caps ule 11/13 aborted Statu s: 'Disc ontin ued'; Not Available Not availab le 0 Not Available Not Available [facility] 04/18/2023 15:08:00 levot hyrox ine 100 mcg table t 5 08:34:39 TAKE ONE TABL ET BY MOUT H EVER Y DAY active Not Available Not availab le 0 Not Available Not Available [employer] - External Data Service - prod 12/01/2024 08:34:39 lisin opril 20 mg table t 5 08:34:39 TAKE ONE TABL ET BY MOUT H EVER Y DAY active Not Available Not availab le 0 Not Available Not Available [employer] - External Data Service - prod 12/01/2024 08:34:39 rosuv astat in 10 mg table t 5 08:34:39 TAKE ONE TABL ET BY MOUT H MIKE Y AT BEDT SEGUN active Not Available Not availab le 0 Not Available Not Available [employer] - External Data Service - prod 12/01/2024 08:34:39 bupro pion HCl SR 150 mg table t,12 hr susta ined- relea se 5 08:34:40 TAKE ONE TABL ET BY MOUT H TWIC E A DAY active Not Available Not availab le 0 Not Available Not Available [employer] - External Data Service - prod 12/01/2024 08:34:40 fluox etine 40 mg capsu le 5 08:34:40 TAKE ONE CAPS ULE BY MOUT H EVER Y DAY active Not Available Not availab le 0 Not Available Not Available [employer] - External Data Service - prod 12/01/2024 08:34:40 amoxi cilli n 500 mg capsu le 5 08:34:41 TAKE ONE CAPS ULE BY MOUT H EVER Y 8 HOUR S FOR 7 DAYS 12/01 aborted Not Available Not availab le 0 Not Available Not Available [employer] - External Data Service - prod 12/01/2024 08:34:41 albut jennifer sulfa te HFA 90 mcg/a ctuat ion aeros ol inhal er 5 08:34:40 INHA LE TWO PUFF S BY MOUT H EVER Y 4 HOUR S NEED ED FOR SHOR TNES S OF CHIQUI TH OR WHEE ZING 12/01 aborted Not Available Not availab le 0 Not Available [facility] 12/01/2024 08:53:42 alend ronat e 70 mg table t 5 08:34:39 TAKE ONE TABL ET BY MOUT H EVER Y WEEK 12/01 aborted Not Available Not availab le 0 Not Available [facility] 12/01/2024 08:53:45 alpra zolam 0.25 mg table t 5 08:34:40 TAKE ONE TO TWO TABL ETS BY MOUT H AT BEDT SEGUN NEED ED FOR ANXI ETY 12/01 aborted Not Available Not availab le 0 Not Available [facility] 12/01/2024 08:53:48 amlod ipine 5 mg table t 5 08:34:39 TAKE ONE TABL ET BY MOUT H EVER Y DAY 12/01 aborted Not Available Not availab le 0 Not Available [facility] 12/01/2024 08:53:49 Flect or 4 15:08:00 12 HRS ON 12 HRS OFF 12/01 aborted Statu s: 'Curr ent'; Not Available Not availab le 0 Not Available [facility] 12/01/2024 08:53:55 lactu lose 10 gram/ 15 mL oral solut ion 5 08:34:39 TAKE 30 ML BY MOUT H TWO TIME S A DAY 12/01 aborted Not Available Not availab le 0 Not Available [facility] 12/01/2024 08:54:00 melox icam 15 mg table t 5 08:51:00 Take 1 tabl et ever y day by oral rout e with meal (s) for 30 days . 12/01 aborted Trochanteri c bursitis of right hip Not availab le 1 Not Available Not Available [employer] 12/01/2024 08:54:05 oxyco done HCl-o xycod one-A SA 4 15:08:00 1 Q 6HRS PRN PAIN DO NOT DRIV E MARY E ON THIS MEDI JUAN RAMON ON 12/01 aborted Statu s: 'Curr ent'; Not Available Not availab le 0 Not Available [facility] [employer] [facility] 12/01/2024 08:54:06 pseud betty ellis in ER 80-70 0 mg table t,ext ended relea se 4 15:08:00 1-2 q 4-6 hrs prn pain 12/01 aborted Statu s: 'Curr ent'; Not Available Not availab le 0 Not Available [facility] [employer] [facility] 12/01/2024 08:54:08 Vitals Date Recorded Body height Body mass index (BMI) Body weight Provider Name and Address Organization Details Last Updated DateTime 12/01/2024 154.94 cm 31 kg/m2 44325.15 g [facility] [employer] [facility] 12/01/2024 08:39:16 Social History Social History Observation Description Date Observed Sex Unknown 12/01/2024 Legal Sex Female Status Not (finding) 02/11/20 25 No social history survey screeners recorded No social history SDOH screeners recorded Functional Status None recorded. No Functional Screening assessment recorded No Functional SDOH screeners recorded Mental Status None recorded. No Mental Screening assessment recorded No Mental SDOH screeners recorded Family History Nothing Reported. Medical History No medical history recorded. Gynecological HistoryNo gynecological history recorded. Obstetrics History GPAL:G 0 P 0 0 0 0 Past Encounters Encounter ID Performer Location Encounter Start Date Encounter Closed Date Diagnosis/Indication Diagnosis SNOMED-CT Code Diagnosis ICD10 Code Diagnosis IMO Codes Diagnosis Note [id number] MARIETTA Cooper [address] [place] [address] 12/01/2024 08:34:37 12/18/2024 12:16:21 Pain of right hip joint [id number] 94091 M25.551 393853 Trochanter ic bursitis of right hip 4022444560 33633 M70.61 6552741 Health Concerns Section Related Observation LastModified by Organization Detai ls LastModified Time None Recorded Concern Status LastModified by Organization Details LastModified Time None Recorded SDOH Concern Status LastModified by Organization Detai ls LastModified Time None Recorded Payers Encounter Date Sequence Insurance Name Policy Number Policy Ovalle Covered Member ID Ovalle Member ID Guarantor Name 12/01/2024 1 [place] [employer] Miladys Montiel [id number] Miladys Montiel 12/01/2024 2 [place]) [id number] Miladys Montiel [id number] Miladys Montiel Notes Date Note Type [...] and addressed today. Steven Wilder PA-C [address], [place], [address], [facility] - [facility] 12/01/2024 09:06:43 Care Team Name Role Member ID Specialty Address Phone [address] Primary Care Provider [phone] [facility], [place], [place] OBGyn Episode No OBEpisode recorded.
--- OUTSIDE RECORDS SUMMARY | 2025-02-10 09:41 | XMS_ITS | Data Portability ---
Author Organization [facility], [facility] Address [address] [place] [address] Care Team Providers Care Logistics Planner Name Role Phone Dea Dodd Primary Care [...] 2024 08:38: 52 025 Steven Wilder PA-C [facility] Office [address], [place], [address], Steven Wilder PA-C 09:22:20 MedicationOrder s melox icam 15 mg table t 2024 08:51: 00 [id number] [facility], [address], Ph [phone] Not Available Not available 08:54:05 Take 1 [...] + pelvis, unilateral 2 or 3 view, [address] [email or web address] Not Available [facility] , [address] [facility] [address] , [place] , [address], , 12/01/2024 08:44:26 Result Notes Documentation Provider Name and Address Organization Details Recorded Time Xr, Hip + Pelvis, Unilateral, 2 Or 3 View : [email or web address] [email or web address] [id number] Not Available [facility] 12/01/2024 08:44: 26 Problems Name Problem SNOMED Code Status Onset Date Resolution Date Notes Provider Name and Address Organization Details Recorded Time Knee joint prosthesi s present 549799818338 Active 2017 Problem Code: Z96.653; Problem Code Type: ICD-10; Status: 'A'; Not Available [facility] 11:42:42 Problem Notes None recorded. Medical Equipment None Reported. Allergies Allergen ID Allergen Name Allergen Category Reaction Reaction Severity Criticality Documentation Date Start Date Code Code System Note Provider Name and Address Organization Details Recorded Time 18498 Bactrim medicatio n Not available Not available Not available 04/18/20232016 88538 9 RxNorm Aller gyRea ction : 'Skin React ion'; Not Available [facility] 13:27:47 Medications Name Authored On Sig Start Date Stop Date Status Note Indication Fill Status Repeat Number Dispense Quantity LastModified by Organization Details LastModified Time Linze ss 4 15:08:00 Linz ess 290M CG Caps ule 11/13 aborted Statu s: 'Disc ontin ued'; Not Available Not availab le 0 Not Available Not Available [facility] 04/18/2023 15:08:00 levot hyrox ine 100 mcg [...] Available Not availab le 0 Not Available [facility] 12/01/2024 08:53:42 alend ronat e 70 mg table t 5 08:34:39 TAKE ONE TABL ET BY MOUT H EVER Y WEEK 12/01 aborted Not Available Not availab le 0 Not Available [facility] 12/01/2024 08:53:45 alpra zolam 0.25 mg table t 5 08:34:40 TAKE ONE TO TWO TABL ETS BY MOUT H AT BEDT SEGUN NEED ED FOR ANXI ETY 12/01 aborted Not Available Not availab le 0 Not Available [facility] 12/01/2024 08:53:48 amlod ipine 5 mg table t 5 08:34:39 TAKE ONE TABL ET BY MOUT H EVER Y DAY 12/01 aborted Not Available Not availab le 0 Not Available [facility] 12/01/2024 08:53:49 Flect or 4 15:08:00 12 HRS ON 12 HRS OFF 12/01 aborted Statu s: 'Curr ent'; Not Available Not availab le 0 Not Available [facility] 12/01/2024 08:53:55 lactu lose 10 gram/ 15 mL oral solut ion 5 08:34:39 TAKE 30 ML BY MOUT H TWO TIME S A DAY 12/01 aborted Not Available Not availab le 0 Not Available [facility] 12/01/2024 08:54:00 melox icam 15 [...] 6HRS PRN PAIN DO NOT DRIV E WHIL E ON THIS MEDI JUAN RAMON ON 12/01 aborted Statu s: 'Curr ent'; Not Available Not availab le 0 Not Available [facility] 12/01/2024 08:54:06 pseud oephe zurdo ellis in ER 80-70 0 mg table t,ext ended relea se 15:08:00 1-2 q 4-6 hrs prn pain 12/01 aborted Statu s: 'Curr ent'; Not Available Not availab le 0 Not Available [facility] 12/01/2024 08:54:08 Vitals Date Recorded Body height Body mass index (BMI) Body weight Provider Name and Address Organization Details Last Updated DateTime 12/01/2024 154.94 cm 31 kg/m2 15784.15 g [facility] 12/01/2024 08:39:16 Social History Social History Observation Description Date Observed Sex Unknown 12/18/2024 Legal Sex Female Status Not (finding) 02/11/20 [...] ICD10 Code Diagnosis IMO Codes Diagnosis Note [id number] MARIETTA Cooper [address] [place] [address] 12/01/2024 08:34:37 12/18/2024 12:16:21 Pain of right hip joint 2929985559 50529 M25.551 230934 Trochanter ic bursitis of right hip [id number] 57426 M70.61 [id number] Health Concerns Section Related Observation LastModified by Organization Ricky ls LastModified Time None Recorded Concern Status LastModified by Organization Details LastModified Time None Recorded SDOH Concern Status LastModified by Organization Detai ls LastModified Time None Recorded Advance Directives Directive None Recorded Payers Insurance Date Sequence Insurance Name Policy Number Policy Ovalle Covered Member ID Ovalle Member ID Guarantor Name 12/01/2024 1 [place] [employer] Miladys Montiel [id number] Miladys Montiel 12/18/2024 2 [place] [id number] Miladys Montiel [id number] Miladys Montiel Notes Date Note Type [...] questions and concerns answered and addressed today. DOMINGO Cooper-Guy [address], [place], [address], [facility] 12/01/2024 09:06:43 Care Team Name Role Member ID Specialty Address Phone [address] Primary Care Provider [phone] [facility], [place], [place] OBGyn Episode No OBEpisode recorded.
--- OUTSIDE RECORDS SUMMARY | 2025-02-10 09:41 | XMS_ITS | Clinical Summary ---
Author Organization [facility] Address [address] [place] [id number] Care Team Providers Care Crop Pest Control Specialist Name Role Phone Kinga Brandt MD Primary [...] Influenza Vaccine 09/14/2024 COVID-19 Vaccine (1 - 2024-2 6 season) 2024 Hepatitis B Vaccines Aged Out No long er eligible based on patient's age to complete this topic Insurance MEDICARE PART A & B [facility] Advance Directives * Full Code (Latest Code Status on File) Date Activated Date Inactivated Comments 06/05/2020 7:22 AM Question Answer Comments Decision Thoroughly Discussed with: Patient Care Teams Crop Pest Control Specialist Relationship Specialty Start Date End Date Kinga Brandt MD [address] [place] [address] PCP - General 04/22/20
== END 2025-02-10 09:36 | disposition home or self-care (01) ==
LOC: HO.MRI 09:35
PROVIDERS: PCP Physician Assistant Medical; Visit Provider Physician Assistant Medical
DX: R29.6 Repeated falls (principal); R53.83 Other fatigue
CPT/HCPCS: 70551